=== PATIENT | male | born 1995 | race Caucasian/White ===

== ENCOUNTER 2019-06-30 14:02 | Emergency (ER) | payer SELFPAY ==
[2019-06-30 14:06] VITALS: BP 133/79; PULSE 89; RESP 12; TEMP 36.6; O2SAT 98
[2019-06-30] MEDS: Tetracaine 0.5% 4 ML BTL (14:16)
[2019-06-30] MEDS: Balanced Salt Solution 15 ML BTL (14:16)
[2019-06-30] MEDS: Fluorescein STRIPS 100/BOX 1 MG (14:16)
--- NOTE | 2019-06-30 15:05 | ED.GENADUL_ITS ---
Discharge Plan Disposition Patient Disposition: HOME Condition: Stable Discharge Details Chief Complaint: EyeProblem Clinical Impression: Abrasion of sclera of right eye, Eye foreign body Primary Care Provider: Luciano Dunn ED Provider: Shea Mclain Home Meds and New Rx's Prescriptions: No Action No Known Home Meds RF: 0 Discharge Instructions Instructions: Corneal Abrasion (ED), Eye Foreign Body (ED) Additional Instructions: Alternate Tylenol and Motrin as needed and directed for pain. Apply half-inch ribbon of erythromycin to the right eye 4 times daily for the next 5 days. Follow-up with your scheduled appointment with [facility] on . Return to the emergency department if you develop any worsening or new concerning symptoms. Discharge Data Discharge Physician: Shea Mclain Medical Decision Making 24-year-old male presents with right eye pain and foreign body sensation after using a plate grinder at work without eye protection. Does not wear contacts or glasses. No complaint of blurry vision or headache. Tetanus up-to-date. OD 20/20, OS 20/20, OU 20/20. There is a 4 x 2 mm scleral abrasion noted at 7:00 with Sanabria lamp. There is a 1 x 1 mm dark brown speck consistent with likely metal noted at 2:00 with slit- lamp and gross examination. The area was anesthetized with topical tetracaine and with multiple attempts, the foreign body was removed with the tip of an 18-gauge needle. There was no obvious remaining foreign body noted with repeat slit-lamp examination after removal. There was a rust stain remaining in place of the removed foreign body. Patient admitted to relief of pain. His eye was irrigated with saline solution and 1/2 inch ribbon of erythromycin ointment was placed. He has a follow-up appointment with [facility] on FridayJuly 05. He is advised to return here with any worsening or new concerning symptoms. HPI General Mode of arrival: ambulatory . Date/Time Provider Initiated Documentation: 06/30/19 14:11 . Limitations to Documentation: no limitations . Information obtained by: patient . HPI Narrative: Patient is a 24-year-old male who presents with injury to right eye since last night after using a plate grinder at work without eye protection. Patient states he thought something shot into his right eye. He states since then he has had irritation with blinking and is concerned that there is something in his eye. He states his tetanus is up-to- date. He denies any blurry vision, contacts, glasses, headache or dizziness. Related Data Home Medications Medication Instructions Recorded Confirmed Unknown [No Known Home Meds] 06/30/19 06/30/19 Allergies Allergy/AdvReac Type Severity Reaction Status Date / Time No Known Allergies Allergy Unverified 06/30/19 14:10 General Stated Complaint: EyeProblem TAMIKO: 4 Review of Systems All systems reviewed & are unremarkable except as noted in HPI and below Constitutional Constitutional: Reports as per HPI, Denies chills and Denies fever(s) Eyes Eyes: Denies blurry vision, Reports irritation, Reports eye pain and Reports other (foreign body sensation ) ENT Ears, Nose, Mouth, and Throat: Denies dizziness, Denies sore throat and Denies throat swelling Cardiovascular Cardiovascular: Denies chest pain and Denies dyspnea Respiratory Respiratory: Denies cough and Denies dyspnea Gastrointestinal Gastrointestinal: Denies abdominal pain, Denies diarrhea and Denies vomiting Genitourinary Genitourinary: Denies hematuria and Denies dysuria Musculoskeletal Musculoskeletal: Denies back pain and Denies numbness Integumentary/Breasts Skin/Breast: Denies lesions and Denies rash Neurologic Neurologic: Denies dizziness, Denies focal weakness and Denies numbness Allergic/Immunologic Allergic/Immunologic: Denies throat swelling [facility] Medical History No significant past medical history (Acute) Surgical History History of hernia repair (Chronic) Social History Smoking/Tobacco Use Status: Never Alcohol Intake: current Alcohol Intake frequency: holidays/special occasions only Drug use: Never Substance use type: does not use Do you feel safe at home: Yes Do you feel safe in your relationship?: Yes Exam Const General: cooperative, healthy appearing and no acute distress [facility] Head: normal to inspection Mouth: oral mucosae normal Eyes General: appearance normal, both eyes and all related structures Periorbital: periorbital findings normal Eyelids: eyelids normal Conjunctivae: conjunctival abnormality right conjunctival injection Pupils: PERRL EOM: EOM intact bilaterally Direct ophthalmoscopy: photophobia not present Other: There is a 4 x 2 mm scleral abrasion noted at 7:00 with fluorescein staining and Sanabria lamp. No other foreign bodies or injury noted with eyelid eversion. Eyes/upper lids images: 1. 1 x 1 mm dark brown speck likely consistent with metal noted at 2:00 in the iris noted with slit lamp examination and with gross examination of the eye. Neck Neck: normal visual inspection Resp Effort & Inspection: normal respiratory effort and able to speak in complete sentences Cardio Rate: regular rate Skin General skin exam: no rashes or lesions noted Neuro General: alert, awake and oriented x3 Motor: muscle tone normal throughout Extrem General: normal to inspection and full ROM Psych Appearance: grossly normal Affect: normal affect Course Vital Signs Vital signs: Vital Signs Temperature 97.9 F 06/30/19 14:06 Pulse 89 06/30/19 14:06 Respiratory Rate 12 06/30/19 14:06 Blood Pressure 133/79 06/30/19 14:06 Pulse Oximetry 98 06/30/19 14:06 Temperature 97.9 F 06/30/19 14:06 Temperature Source Temporal Artery Scan 06/30/19 14:06 Pulse 89 06/30/19 14:06 Respiratory Rate 12 06/30/19 14:06 Respiratory Effort Non-Labored 06/30/19 14:08 Blood Pressure 133/79 06/30/19 14:06 Blood Pressure Position Sitting 06/30/19 14:06 Pulse Oximetry 98 06/30/19 14:06 Oxygen Delivery Method Room Air 06/30/19 14:06 Oxygen Flow Rate 0 06/30/19 14:06 Pain Level 6 06/30/19 14:06
== END 2019-06-30 15:25 | disposition home or self-care (01) ==
LOC: ER 15:30
PROVIDERS: Emergency Provider Physician Assistant; PCP Internal Medicine
DX: T15.01XA Foreign body in cornea, right eye, initial encounter (principal); W31.1XXA Contact with metalworking machines, initial encounter
CPT/HCPCS: 65222

== ENCOUNTER 2019-09-18 04:51 | Inpatient (IN) | payer MEDICAID, SELFPAY ==
[2019-09-18] VITALS (27 sets, daily range): BP systolic 132–167; BP diastolic 63–105; PULSE 79–128; RESP 11–33; TEMP 36.6–38.3; O2SAT 94–98
--- NOTE | 2019-09-18 | DI.CT_ITS ---
EXAM: CT ABDOMEN PELVIS W CLINICAL HISTORY: Sepsis. N/v - IV contrast only TECHNIQUE: Imaging Protocol: Axial computed tomography images with coronal and sagittal reformatted images were created and reviewed CONTRAST MATERIAL: Intravenous: Omnipaque 350 Contrast volume:100 mL Oral: No COMPARISON: No exams were available for comparison FINDINGS: ABDOMEN: Lung Bases: Normal where visualized. Liver: Normal density. No measurable mass. Portal, Superior Mesenteric, and Splenic Veins: Unremarkable. Gallbladder and Biliary Tract: No radiodense calculus or dilation. Pancreas: Normal density, no abnormal calcifications or inflammatory process. Spleen: Normal. Adrenals: No masses seen. Kidneys: Normal size, contour and axis. No radiodense stones or obstructive uropathy. No masses seen. Abdominal Aorta: Abdominal portion non-dilated. Bowel: No obstruction or bowel wall thickening. Appendix is unremarkable. Peritoneal Cavity: No ascites, collection or mesenteric inflammatory response. Lymph Nodes: Within normal limits. Bones: Unremarkable. Soft Tissues: Unremarkable. PELVIS: Bladder: Symmetric distention, no gross wall thickening. Reproductive Organs: Unremarkable as visualized. Lymph Nodes: Within normal limits. Bones: L5 spondylolysis without evidence of spondylolisthesis. IMPRESSION: No acute abdominal or pelvic process. Incidental Findings Critical Findings DATA REPOSITORY: All CT scans at this facility are submitted to the National Radiology Data Registry (NRDR) Dose Index Registry (DIR) with the [employer] (ACR). RADIATION OPTIMIZATION: All CT scans at this facility use at least one of these dose optimization te chniques: automated exposure control; mA and/or kV adjustment per patient size (includes targeted exa ms where dose is matched to clinical indication); or iterative reconstruction.
--- NOTE | 2019-09-18 04:57 | ED.GENADUL_ITS ---
Discharge Plan Disposition Patient Disposition: [facility] INPATIENT Condition: Stable Discharge Details Chief Complaint: Abd Prob Clinical Impression: Opiate withdrawal, Hypokalemia Primary Care Provider: Luciano Dunn ED Provider: Jeremy Lara Home Meds and New Rx's Prescriptions: No Action clonidine HCl 0.1 mg Tablet 0.1 mg PO BID PRNRF: 0 loperamide 2 mg Capsule 2 mg PO TID PRNRF: 0 hydroxyzine HCl 25 mg Tablet 25 mg PO TID PRNRF: 0 ondansetron 4 mg Tablet,Disintegrating 8 mg PO Q8H PRNRF: 0 acetaminophen 325 mg Capsule 325 mg PO TID PRNRF: 0 buprenorphine-naloxone [Suboxone] 8-2 mg Film 1 film SUBLINGUAL DAILY RF: 0 Medical Decision Making 24 yo male who comes in from the care home for n/v for a day. He was using fentanyl multiple times a day for over a year and was incarcerated and started to have nausea and vomit starting yesterday and also having diarrhea and abdominal cramping. Ya any sharp pain. He was given 8mg zofran and also buprenorphine at the care home but was still having vomit so came here. He has a soft nontender abdomen, does have sweating on exam. Suspect opiate withdrawal, will given clonidine and also compazine and evaluate for electrolyte abnormalities and monitor. pt's wbc is over 30 which I suspect is stress response from his vomit and withdrawal, no fevers or infectious symptoms. K is 2.8 and mag is 1.5 and still not tolerating PO so will admit for opiate withdrawal and hypokalemia. Soft nontender abdomen still. Differential Diagnosis Differential Diagnosis: opiate withdrawal, gastritis Lab Data Lab results reviewed: Yes I reviewed the patient's lab results. HPI General Mode of arrival: wheelchair . Date/Time Provider Initiated Documentation: 09/18/19 04:56 . Limitations to Documentation: no limitations . Information obtained by: patient . History of Present Illness 24 year old M presents to the emergency department with the chief complaint of nausea and vomit, described as moderate and severe, Patient started experiencing this day(s) (1) and it has been constant. No relieving factors improve symptom(s), No exacerbating factors reported . Related Data Home Medications Medication Instructions Recorded Confirmed acetaminophen 325 mg PO TID PRN 09/18/19 09/18/19 buprenorphine-naloxone [Suboxone] 1 film SUBLINGUAL DAILY 09/18/19 09/18/19 clonidine HCl 0.1 mg PO BID PRN 09/18/19 09/18/19 hydroxyzine HCl 25 mg PO TID PRN 09/18/19 09/18/19 loperamide 2 mg PO TID PRN 09/18/19 09/18/19 ondansetron 8 mg PO Q8H PRN 09/18/19 09/18/19 Allergies Allergy/AdvReac Type Severity Reaction Status Date / Time No Known Allergies Allergy Unverified 06/30/19 14:10 General Stated Complaint: Abd Prob TAMIKO: 3 Review of Systems All systems reviewed & are unremarkable except as noted in HPI and below Constitutional Constitutional: Denies fever(s) Cardiovascular Cardiovascular: Denies chest pain and Denies dyspnea Respiratory Respiratory: Denies cough and Denies dyspnea Gastrointestinal Gastrointestinal: Reports nausea and Reports vomiting PFSH Medical History No significant past medical history (Acute) Surgical History History of hernia repair (Chronic) Social History Smoking/Tobacco Use Status: Never Alcohol Intake: current Alcohol Intake frequency: holidays/special occasions only Drug use: Never Substance use type: opiates Do you feel safe at home: Yes Do you feel safe in your relationship?: Yes Exam Const General: no acute distress Orientation: alert HENMT Head: normal to inspection Ears: external ears normal General nose exam: external nose normal Mouth: moist mucous membranes Eyes General: appearance normal, both eyes and all related structures Neck Neck: normal visual inspection Resp Effort & Inspection: normal respiratory effort and able to speak in complete sentences Cardio Rate: regular rate GI Palpation: soft Skin General skin exam: no rashes or lesions noted Neuro General: alert and oriented x3 Extrem General: normal to inspection Psych Mental Status: mental status grossly normal Course Vital Signs Vital signs: Pain Level 10 09/18/19 04:54
[2019-09-18] MEDS: Prochlorperazine 10 MG/2 ML VIAL IVP (05:12)
[2019-09-18] MEDS: Normal Saline Flush 10 ML SYR IVP ×5 (05:13→19:43)
[2019-09-18] MEDS: Normal Saline 1,000 ML 1000 ML IV (05:13)
[2019-09-18] MEDS: Pantoprazole 40 MG VIAL IVP ×3 (05:13→19:38)
[2019-09-18 05:14] LABS: Abs Immature Grans 0.16 k/cumm (0.0-0.09); HCT 43.2 % (40.0-50.0); HGB 15.2 g/dL (13.5-17.5); Mean Corp. HGB Concentration 35.2 g/dL (32.0-36.0); Mean Corpuscular Hemoglobin 28.6 pg (27.0-33.0); Mean Corpuscular Volume 81.4 fL (80-95); Mean Platelet Volume 9.6 fL (8.0-11.0); Platelet Count 576 x1000/uL (130-400); RBC 5.31 m/cumm (4.50-6.00); RBC Distribution Width 12.5 % (11.8-14.1)
[2019-09-18 05:23] LABS: Lipase 97 U/L (73-393); Magnesium 1.5 mg/dL (1.8-2.4)
[2019-09-18 05:30] LABS: ETHANOL BLOOD < 3.0 mg/dL (<3)
[2019-09-18 05:35] LABS: Absolute Monocyte Count 2.45 k/cumm (0.11-0.7); Absolute Neutrophil Count 31.81 k/cumm (1.2-6.7); Diff Comment Manual Differential; RBC Morphology Normal
[2019-09-18 05:36] LABS: White Blood Cell Count 34.96 k/cumm (4.4-10.8)
[2019-09-18 05:53] LABS: Anion Gap 19.6 mmol/L (3-11); BUN 20 mg/dL (7-18); CO2 28.4 mmol/L (21.0-32.0); CREATININE 1.57 mg/dL (0.70-1.30); Chloride 96 mmol/L (98-107); Estimated GFR 53.67 (mL/min/1.73m2); Glucose 247 mg/dL (74-106); Sodium 144 mmol/L (136-145)
[2019-09-18] MEDS: cloNIDine 0.1 MG TAB PO ×2 (05:57→19:35)
[2019-09-18 05:59] LABS: Potassium 2.8 mmol/L (3.5-5.1)
--- NOTE | 2019-09-18 06:04 | NUR.NOTE ---
Arrives with corrections officers from custodial with c/o vomiting, fentanyl withdrawal. Pt was arrested yesterday, last used fentanyl yesterday. Per corrections staff vomiting coffee ground emesis. Med with zofran, clonidine, buprenorphine and hydroxyzine [employer]. Pt arrives actively vomiting brown liquid. writhing in bed, reports 10/10 pain. #18 LAC, labs drawn, NS infusing. SR on monitor.
[2019-09-18] MEDS: POTASSIUM CHLORIDE 10 MEQ/100 ML BAG 100 MEQ IVPB ×2 (06:13→08:34)
--- NOTE | 2019-09-18 06:29 | W.PM.HP.N ---
Date of service: 09/18/19 Time of Service: 06:29 Assessment and Plan Assessment and plan (1) Opiate withdrawal: Status: Acute Assessment and plan: Opiate withdrawal. The marked leukocytosis is notable, presumably stress reaction, presentation does not otherwise suggest infection. Also noted is modest elevation in glucose (253) with elevated anion gap. Differential would technically include DKA but the balance of the case is clearly opiate withdrawal. Will continue IVF, potassium replacement, anti-emetics and will recheck CBC and electrolytes. Will also recheck sugar and check urine for ketones. History of Present Illness History of Present Illness Chief Complaint: vomiting Narrative: 24 male with h/o opiate abuse, incarcerated 2 days [employer], began experiencing nausea, vomiting, treated at correction with Suboxone and Zofcran without effect, sent here for further management. In ER findings of note for diaphoresis and restlessness, c/w opiate withdrawal, and labs of note for leukocytosis of 34K, magnesium 1.5 and hypokalemia. Given Mg SO4 1 gm, KCL 10 meq and started on Clonidine and Compazine. At this time patient states his nausea is much better. Denies abdominal pain. Review of Systems All systems reviewed & are unremarkable except as noted in HPI and below PFSH Medical History No significant past medical history (Acute) Surgical History History of hernia repair (Chronic) Social History Smoking/Tobacco Use Status: Never Alcohol Intake: current Alcohol Intake frequency: holidays/special occasions only Drug use: Never Substance use type: opiates Do you feel safe at home: Yes Do you feel safe in your relationship?: Yes Meds Home Medications and Allergies Home Medications Medication Instructions Recorded Confirmed Type acetaminophen 325 mg PO TID PRN 09/18/19 09/18/19 History buprenorphine-naloxone [Suboxone] 1 film SUBLINGUAL DAILY 09/18/19 09/18/19 History clonidine HCl 0.1 mg PO BID PRN 09/18/19 09/18/19 History hydroxyzine HCl 25 mg PO TID PRN 09/18/19 09/18/19 History loperamide 2 mg PO TID PRN 09/18/19 09/18/19 History ondansetron 8 mg PO Q8H PRN 09/18/19 09/18/19 History Allergies Allergy/AdvReac Type Severity Reaction Status Date / Time No Known Allergies Allergy Unverified 06/30/19 14:10 Exam Narrative Exam Narrative: 132/66, 88, 20, 37/2. HEENT Atraumatic, pupils 6-7 mm; neck supple; lungs clear; heart RRR; abdomen soft and NT; extremities w/o edema; neuro Ox3, restless, moves all 4s Results Labs Result diagrams: 09/18/19 05:00 09/18/19 05:00 Labs: Laboratory Results - last 24 hr 09/18/19 09/18/19 09/18/19 05:00 05:00 05:00 WBC 34.96 H* RBC 5.31 Hgb 15.2 Hct 43.2 MCV 81.4 MCH 28.6 MCHC 35.2 RDW 12.5 Plt Count 576 H MPV 9.6 Immature Gran % 0.0 Neutrophils % 91.0 Lymphocytes % 2.0 Monocytes % 7.0 Eosinophils % 0.0 Basophils % 0.0 Absolute Neutrophils 31.81 H Absolute Lymphocytes 0.70 L Absolute Monocytes 2.45 H Absolute Eosinophils 0.00 Absolute Basophils 0.00 Differential Comment Manual differential RBC Morphology Normal Sodium Potassium Chloride Carbon Dioxide Anion Gap BUN Creatinine Estimated GFR/1.73 m2 Glucose Calcium Magnesium 1.5 L Lipase 97 Ethyl Alcohol < 3.0 09/18/19 05:00 WBC RBC Hgb Hct MCV MCH MCHC RDW Plt Count MPV Immature Gran % Neutrophils % Lymphocytes % Monocytes % Eosinophils % Basophils % Absolute Neutrophils Absolute Lymphocytes Absolute Monocytes Absolute Eosinophils Absolute Basophils Differential Comment RBC Morphology Sodium 144 Potassium 2.8 L* Chloride 96 L Carbon Dioxide 28.4 Anion Gap 19.6 H BUN 20 H Creatinine 1.57 H Estimated GFR/1.73 m2 53.67 Glucose 247 H Calcium 10.0 Magnesium Lipase Ethyl Alcohol Last Vital Signs Temp 37.2 C 09/18/19 06:18 Pulse 88 09/18/19 06:18 Resp 20 09/18/19 06:18 BP 132/66 09/18/19 06:18 Pulse Ox 96 09/18/19 06:18
[2019-09-18] MEDS: MAGNESIUM SULFATE 1 GM/100 ML BAG IVPB (07:44)
[2019-09-18] MEDS: Acetaminophen 325 MG TAB 650 MG PO (08:34)
[2019-09-18] MEDS: POTASSIUM CHLORIDE/0.9% NACL 1,000 ML 125 MEQ IV ×2 (08:44→17:58)
[2019-09-18 09:15] LABS: Lactate 3.4 mmol/L (0.6-1.4)
[2019-09-18 09:16] LABS: Absolute Lymphocyte Count 0.93 k/cumm (1.2-3.4); Basophils % 0.1; HCT 38.7 % (40.0-50.0); HGB 13.4 g/dL (13.5-17.5); Immature Grans % 0.3 %; Lymphocytes % 3.1; Mean Corp. HGB Concentration 34.6 g/dL (32.0-36.0); Mean Corpuscular Hemoglobin 28.7 pg (27.0-33.0); Mean Corpuscular Volume 82.9 fL (80-95); Mean Platelet Volume 9.7 fL (8.0-11.0); Monocytes % 8.3; Neutrophils % 88.2; Platelet Count 440 x1000/uL (130-400); RBC 4.67 m/cumm (4.50-6.00); RBC Distribution Width 12.3 % (11.8-14.1)
[2019-09-18 09:20] LABS: Absolute Basophil Count 0.03 k/cumm (0.0-0.2); Absolute Monocyte Count 2.48 k/cumm (0.11-0.7); Absolute Neutrophil Count 26.38 k/cumm (1.2-6.7)
[2019-09-18 09:29] LABS: ALT 20 U/L (16-63); AST 17 U/L (15-37); Albumin 4.7 g/dL (3.4-5.0); Alkaline Phosphatase 52 U/L (46-116); Anion Gap 9.9 mmol/L (3-11); BUN 19 mg/dL (7-18); Bilirubin, Direct 0.19 mg/dL (0.00-0.20); Bilirubin, Total 0.8 mg/dL (0.2-1.0); C-Reactive Protein 0.49 mg/dL (0.0-0.3); CO2 31.1 mmol/L (21.0-32.0); Calcium 8.9 mg/dL (8.5-10.1); Chloride 103 mmol/L (98-107); Glucose 193 mg/dL (74-106); Sodium 144 mmol/L (136-145); Total Protein 7.7 g/dL (6.4-8.2)
[2019-09-18 09:30] LABS: INR 1.3 (0.9-1.1); Prothrombin Time 12.7 sec (9.3-11.0)
[2019-09-18] MEDS: Omnipaque 350 MG/ML 100 ML BTL IJ (09:30)
[2019-09-18] MEDS: Normal Saline - Diluent 50 ML VIAL IV (09:31)
[2019-09-18 09:32] LABS: Potassium 2.8 mmol/L (3.5-5.1)
--- NOTE | 2019-09-18 09:50 | DI.RAD_ITS ---
EXAM: XR CHEST 2V PA LATERAL INDICATION: sepsis. COMPARISON: No exams were available for comparison TECHNIQUE: 2D digital imaging was performed. FINDINGS: The heart size and pulmonary vasculature are within normal limits. No focal consolidating infiltrate s are present. No pleural effusions or pneumothoraces are identified. Bones appear intact. IMPRESSION: No acute pulmonary process.
[2019-09-18 09:52] LABS: White Blood Cell Count 29.91 k/cumm (4.4-10.8)
[2019-09-18 09:53] LABS: Diff Comment Agrees w/ Instrument; Procalcitonin 0.6 ng/mL; RBC Morphology Normal
[2019-09-18] MEDS: PIPERACILLIN/TAZO 4.5 GM in Normal Saline 100 ML IVPB ×2 (10:07→16:17)
--- NOTE | 2019-09-18 10:09 | DI.VRAD_ITS ---
PROCEDURE INFORMATION: Exam: CT Abdomen And Pelvis With Contrast Exam date and time: 09/18/2019 9:36 AM Age: 24 years old Clinical indication: Other: Sepsis. N/v TECHNIQUE: Imaging protocol: Computed tomography of the abdomen and pelvis with intravenous contrast. Radiation optimization: All CT scans at this facility use at least one of these dose optimization techniques: automated exposure control; mA and/or kV adjustment per patient size (includes targeted exams where dose is matched to clinical indication); or iterative reconstruction. Contrast material: OMNIPAQUE 350; Contrast volume: 100 ml; Contrast route: IV; COMPARISON: No relevant prior studies available. FINDINGS: Lungs: The visualized portions of the lungs are normal. Liver: The liver is normal. Gallbladder and bile ducts: There is no intrahepatic bile duct dilation. The gallbladder is normal. The common bile duct is not dilated. Pancreas: Unremarkable. No ductal dilation. Spleen: The spleen is normal. Adrenals: The adrenal glands are normal. Kidneys and ureters: The kidneys are normal. The ureters are normal. Stomach and bowel: The stomach is normal. There is no evidence of intestinal obstruction. There is no wall thickening to suggest enteritis or colitis. Appendix: A normal appendix is identified. Intraperitoneal space: Unremarkable. No free air. No significant fluid collection. Vasculature: Unremarkable. No abdominal aortic aneurysm. Lymph nodes: Unremarkable. No enlarged lymph nodes. Bladder: The bladder is normal. Reproductive: Unremarkable as visualized. Bones/joints: Dextroconvex thoracolumbar scoliotic curvature. Bilateral L5 pars interarticularis defects. Soft tissues: Unremarkable. IMPRESSION: No acute abdominal pelvic CT findings. Dictated and Authenticated by: Giovani Contreras MD. Ordering:CRISSY Corral MD
--- NOTE | 2019-09-18 10:11 | DI.VRAD_ITS ---
PROCEDURE INFORMATION: Exam: XR Chest, 2 Views Exam date and time: 09/18/2019 9:42 AM Age: 24 years old Clinical indication: Other: Sepsis TECHNIQUE: Imaging protocol: XR of the chest Views: 2 views. COMPARISON: No relevant prior studies available. FINDINGS: Lungs: Mild asymmetrical right peribronchial opacities. No focal airspace consolidation. Pleural space: Unremarkable. No pleural effusion. No pneumothorax. Heart/Mediastinum: Unremarkable. No cardiomegaly. Bones/joints: Unremarkable. IMPRESSION: Mild asymmetrical right peribronchial opacities could represent infectious bronchiolitis in the proper clinical setting. No focal airspace consolidation. Dictated and Authenticated by: Giovani Contreras MD. Ordering:CRISSY Corral MD
[2019-09-18] MEDS: MAGNESIUM SULFATE 4 GM/100 ML BAG IVPB (11:06)
--- NOTE | 2019-09-18 11:56 | PGE_ITS ---
Date of Service Date of service: 09/18/19 Time of Service: 11:56 Subjective Subjective Interval history since last seen: The patient spiked a fever. Reports a sore throat. Denies cough, chest pain, shortness of breath. Denies nausea, but had just vomited after drinking astrid ralf. Denies using IV drugs. Per patient, when he vomited, it looked black. Skilled Nursing staff confirms it - state it looked like chewing tobacco. Flu neg. Blood cultures, urine and sputum culture ordered. Strep ordered. Started on empiric vanco/zosyn. IVF. NPO, increase PPI to BID. Check hemoccult. Check H/H this afternoon. Trend lactates - elevated. Procalcitonin elevated. Looking to see if ther eis a designated facility for federal prisoners in [place]. Objective Objective Clinical Data: Abnormal lab results 09/18/19 09/18/19 09/18/19 Range/Units 05:00 05:00 05:00 WBC 34.96 H* (4.4-10.8) k/cumm Hgb (13.5-17.5) g/dL Hct (40.0-50.0) % Plt Count 576 H (130-400) x1000/uL Absolute Neutrophils 31.81 H (1.2-6.7) k/cumm Absolute Lymphocytes 0.70 L (1.2-3.4) k/cumm Absolute Monocytes 2.45 H (0.11-0.7) k/cumm PT (9.3-11.0) sec INR (0.9-1.1) Potassium 2.8 L* (3.5-5.1) mmol/L Chloride 96 L (98-107) mmol/L Anion Gap 19.6 H (3-11) mmol/L BUN 20 H (7-18) mg/dL Creatinine 1.57 H (0.70-1.30) mg/dL Glucose 247 H (74-106) mg/dL Lactate (0.6-1.4) mmol/L Magnesium 1.5 L (1.8-2.4) mg/dL C-Reactive Protein (0.0-0.3) mg/dL 09/18/19 09/18/19 09/18/19 Range/Units 08:55 08:55 08:55 WBC 29.91 H* (4.4-10.8) k/cumm Hgb 13.4 L (13.5-17.5) g/dL Hct 38.7 L (40.0-50.0) % Plt Count 440 H (130-400) x1000/uL Absolute Neutrophils 26.38 H (1.2-6.7) k/cumm Absolute Lymphocytes 0.93 L (1.2-3.4) k/cumm Absolute Monocytes 2.48 H (0.11-0.7) k/cumm PT (9.3-11.0) sec INR (0.9-1.1) Potassium 2.8 L* (3.5-5.1) mmol/L Chloride (98-107) mmol/L Anion Gap (3-11) mmol/L BUN 19 H (7-18) mg/dL Creatinine 1.40 H (0.70-1.30) mg/dL Glucose 193 H (74-106) mg/dL Lactate 3.4 H* (0.6-1.4) mmol/L Magnesium (1.8-2.4) mg/dL C-Reactive Protein 0.49 H (0.0-0.3) mg/dL 09/18/19 Range/Units 08:55 WBC (4.4-10.8) k/cumm Hgb (13.5-17.5) g/dL Hct (40.0-50.0) % Plt Count (130-400) x1000/uL Absolute Neutrophils (1.2-6.7) k/cumm Absolute Lymphocytes (1.2-3.4) k/cumm Absolute Monocytes (0.11-0.7) k/cumm PT 12.7 H (9.3-11.0) sec INR 1.3 H (0.9-1.1) Potassium (3.5-5.1) mmol/L Chloride (98-107) mmol/L Anion Gap (3-11) mmol/L BUN (7-18) mg/dL Creatinine (0.70-1.30) mg/dL Glucose (74-106) mg/dL Lactate (0.6-1.4) mmol/L Magnesium (1.8-2.4) mg/dL C-Reactive Protein (0.0-0.3) mg/dL Vital Signs Temperature 37.9 C H 09/18/19 09:59 Temperature Source Temporal Artery Scan 09/18/19 09:59 Pulse 107 H 09/18/19 08:09 Pulse Rhythm Regular 09/18/19 07:48 Pulse 84 09/18/19 06:50 Respiratory Rate 18 09/18/19 07:48 Respiratory Effort Short of Breath 09/18/19 07:48 Respiratory Depth Shallow 09/18/19 07:48 Respiratory Pattern Normal 09/18/19 07:48 Blood Pressure 147/63 H 09/18/19 07:48 Blood Pressure Mean 104 09/18/19 06:31 Blood Pressure Position Supine 09/18/19 04:54 Pulse Oximetry 95 09/18/19 07:48 Oxygen Delivery Method Room Air 09/18/19 07:48 Oxygen Flow Rate 0 09/18/19 07:48 Pain Level 2 09/18/19 07:48 Intake & Output 09/17/19 09/17/19 09/18/19 11:59 23:59 11:59 Intake Total 1010 / 1010 Balance 1010 / 1010 Weight 77.3 kg Intake: IV 1010 / 1010 Laboratory Results WBC Cancelled 09/18/19 14:00 RBC Cancelled 09/18/19 14:00 Hgb Cancelled 09/18/19 14:00 Hct Cancelled 09/18/19 14:00 MCV Cancelled 09/18/19 14:00 MCH Cancelled 09/18/19 14:00 MCHC Cancelled 09/18/19 14:00 RDW Cancelled 09/18/19 14:00 Plt Count Cancelled 09/18/19 14:00 MPV Cancelled 09/18/19 14:00 Immature Gran % 0.3 % 09/18/19 08:55 Neutrophils % 88.2 09/18/19 08:55 Lymphocytes % 3.1 09/18/19 08:55 Monocytes % 8.3 09/18/19 08:55 Eosinophils % 0.0 09/18/19 08:55 Basophils % 0.1 09/18/19 08:55 Absolute Neutrophils 26.38 k/cumm (1.2-6.7) H 09/18/19 08:55 Absolute Lymphocytes 0.93 k/cumm (1.2-3.4) L 09/18/19 08:55 Absolute Monocytes 2.48 k/cumm (0.11-0.7) H 09/18/19 08:55 Absolute Eosinophils 0.00 k/cumm (0.0-0.7) 09/18/19 08:55 Absolute Basophils 0.03 k/cumm (0.0-0.2) 09/18/19 08:55 Differential Comment Agrees w/ instrument 09/18/19 08:55 RBC Morphology Normal 09/18/19 08:55 PT 12.7 sec (9.3-11.0) H 09/18/19 08:55 INR 1.3 (0.9-1.1) H 09/18/19 08:55 Sodium Cancelled 09/18/19 14:00 Potassium Cancelled 09/18/19 14:00 Chloride Cancelled 09/18/19 14:00 Carbon Dioxide Cancelled 09/18/19 14:00 Anion Gap Cancelled 09/18/19 14:00 BUN Cancelled 09/18/19 14:00 Creatinine Cancelled 09/18/19 14:00 Estimated GFR/1.73 m2 Cancelled 09/18/19 14:00 Glucose Cancelled 09/18/19 14:00 Lactate 3.4 mmol/L (0.6-1.4) H* 09/18/19 08:55 Calcium Cancelled 09/18/19 14:00 Magnesium 1.5 mg/dL (1.8-2.4) L 09/18/19 05:00 Total Bilirubin 0.8 mg/dL (0.2-1.0) 09/18/19 08:55 Conjugated Bilirubin 0.19 mg/dL (0.00-0.20) 09/18/19 08:55 AST 17 U/L (15-37) 09/18/19 08:55 ALT 20 U/L (16-63) 09/18/19 08:55 Alkaline Phosphatase 52 U/L (46-116) 09/18/19 08:55 C-Reactive Protein 0.49 mg/dL (0.0-0.3) H 09/18/19 08:55 Total Protein 7.7 g/dL (6.4-8.2) 09/18/19 08:55 Albumin 4.7 g/dL (3.4-5.0) 09/18/19 08:55 Lipase 97 U/L (73-393) 09/18/19 05:00 Procalcitonin 0.6 ng/mL 09/18/19 08:55 Ethyl Alcohol < 3.0 mg/dL (<3) 09/18/19 05:00
[2019-09-18 12:13] LABS: Lactate 1.1 mmol/L (0.6-1.4)
[2019-09-18] MEDS: POTASSIUM CHLORIDE 20 MEQ/100 ML BAG 50 MEQ IVPB (12:59)
[2019-09-18 13:37] LABS: Bilirubin Small (Negative); Blood Negative (Negative); Clarity Clear (Clear); Glucose Negative (Negative); Ketones 80 mg/dL (Negative); Leukocyte Esterase Negative (Negative); Nitrite Negative (Negative); pH 8.5 (5-8)
[2019-09-18 13:57] LABS: *AMPHETAMINES SCREEN URINE Negative (Negative); *BARBITURATES SCREEN URINE Negative (Negative); *BENZODIAZEPINES SCREEN URINE Negative (Negative); Cannabinoids THC POSITIVE (Negative); Cocaine Screen,Urine Negative (Negative); METHADONE URINE SCREEN Negative (Negative); OPIATES URINE SCREEN POSITIVE (Negative)
[2019-09-18 13:58] LABS: Tricyclic Antidepressants Negative (Negative)
[2019-09-18 14:04] LABS: Epithelial Cells Few HPF (Negative); RBC 0-2 HPF (0-2); WBC 0-2 HPF (0-5)
[2019-09-18 14:06] LABS: Bacteria Few HPF (Negative); C & S Indicated? C&S Done As Ordered; Casts Negative LPF (Negative); Crystals Negative HPF (Negative); Mucus Negative (Negative); Other Cells Moderate Spermatozoa (Negative)
--- NOTE | 2019-09-18 14:09 | PHARADMIT ---
Admission Pharmacy Clinical Review OPIATE WITHDRAWAL, SEPSIS Code Status Full Code Current Weight 77.3 kg Renally Cleared and Narrow Therapeutic Index Meds CRC;L ~87ML/MIN QTc Value / Action Taken NA BP Control, Fever 147/68 FEBRILE TMAX 38.3 Electrolytes reviewed K 2.8, MAG 1.5, BOTH BEING REPLACED AND FOLLOW UP LAB DRAWS ORDERED DVT Prophylaxis NO Opiate Usage / Scheduled Bowel Regimen Ordered NO/NO Plt/SCr for Heparin / Enoxaparin 440/1.4 INR for Warfarin 1.3 NOT ON WARFARIN H/H stable, WBC/Bands 13.4/38.7 WBC 29.91 Antibiotic appropriateness VANCOMYCIN, PIP/TAZO STARTED Cultures and Sensitivities UC AND BC PENDING, FLU - Surgical ABX d/c within 24 hr NA DM control / Insulin Dosing NA Heart Failure (Check EF%) (JORGE L's, B-Block, Diuretics) NA IV to PO Switch IV MEDS Home Meds Reviewed Home Meds Not Ordered buprenorphine-naloxone [Suboxone] 1 film SUBLINGUAL DAILY hydroxyzine HCl 25 mg PO TID PRN loperamide 2 mg PO TID PRN Comments
[2019-09-18 15:11] LABS: HGB 13.2 g/dL (13.5-17.5); Lactate 1.9 mmol/L (0.6-1.4)
[2019-09-18 15:19] LABS: BUN 16 mg/dL (7-18); CREATININE 1.18 mg/dL (0.70-1.30); Calcium 8.7 mg/dL (8.5-10.1); Chloride 105 mmol/L (98-107); Glucose 159 mg/dL (74-106); Potassium 4.3 mmol/L (3.5-5.1); Sodium 144 mmol/L (136-145)
[2019-09-19] VITALS (80 sets, daily range): BP systolic 115–158; BP diastolic 71–123; PULSE 56–96; RESP 17–40; TEMP 36.5–37.5; O2SAT 86–100
[2019-09-19] MEDS: PIPERACILLIN/TAZO 4.5 GM in Normal Saline 100 ML IVPB ×3 (00:13→16:08)
[2019-09-19] MEDS: Acetaminophen 325 MG TAB 650 MG PO (00:23)
--- NOTE | 2019-09-19 01:52 | DI.RAD_ITS ---
EXAM: XR PORTABLE CHEST AP INDICATION: sudden onset tachypnea and hypoxemia. COMPARISON: XR CHEST 2V PA LATERAL from 09/18/2019 TECHNIQUE: 2D digital imaging was performed. FINDINGS: The heart size and pulmonary vasculature are within normal limits. There has developed a left basila r infiltrate. The lungs are otherwise clear. No effusion or pneumothorax is identified. IMPRESSION: New left lower lobe infiltrate.
[2019-09-19] MEDS: POTASSIUM CHLORIDE/0.9% NACL 1,000 ML 125 MEQ IV ×2 (02:00→15:35)
--- NOTE | 2019-09-19 02:36 | DI.VRAD_ITS ---
PROCEDURE INFORMATION: Exam: XR Chest, 1 View Exam date and time: 09/19/2019 2:18 AM Age: 24 years old Clinical indication: Tachypnea and other: Hypoxemia; Patient HX: Sudden onset tachypnea and hypoxemia TECHNIQUE: Imaging protocol: XR of the chest Views: 1 view. COMPARISON: CR XR CHEST 2V PA LATERAL 09/18/2019 9:41 AM FINDINGS: Lungs: Left lower lobe infiltrate. Pleural space: Unremarkable. No pleural effusion. No pneumothorax. Heart/Mediastinum: Unremarkable. No cardiomegaly. Bones/joints: Unremarkable. IMPRESSION: Left lower lobe infiltrate. This is segmental in size. This was not present 09/18/2019 at 9:00 a.m. Dictated and Authenticated by: Reed Fernández MD. Ordering:MURRAY Wolf MD
[2019-09-19 02:39] LABS: Abs Immature Grans 0.07 k/cumm (0.0-0.09); HGB 12.7 g/dL (13.5-17.5); Mean Corp. HGB Concentration 34.3 g/dL (32.0-36.0); Mean Corpuscular Hemoglobin 28.9 pg (27.0-33.0); Mean Corpuscular Volume 84.3 fL (80-95); Mean Platelet Volume 9.3 fL (8.0-11.0); Platelet Count 327 x1000/uL (130-400); RBC 4.39 m/cumm (4.50-6.00); RBC Distribution Width 12.9 % (11.8-14.1); White Blood Cell Count 22.98 k/cumm (4.4-10.8)
[2019-09-19 02:45] LABS: Anion Gap 7.5 mmol/L (3-11); BUN 11 mg/dL (7-18); CO2 29.5 mmol/L (21.0-32.0); CREATININE 1.05 mg/dL (0.70-1.30); Chloride 108 mmol/L (98-107); Glucose 128 mg/dL (74-106); Potassium 3.2 mmol/L (3.5-5.1); Sodium 145 mmol/L (136-145)
[2019-09-19 02:57] LABS: Absolute Lymphocyte Count 0.23 k/cumm (1.2-3.4); Absolute Neutrophil Count 21.14 k/cumm (1.2-6.7)
[2019-09-19 02:58] LABS: Absolute Monocyte Count 1.38 k/cumm (0.11-0.7); Anisocytosis 1+; Diff Comment Manual Differential
[2019-09-19 02:59] LABS: Microcytosis 1+; NT-proBNP 191 pg/mL (<300)
[2019-09-19 03:09] LABS: D-Dimer 483 ng/mlFEU (<500)
[2019-09-19] MEDS: Potassium Chloride 20 MEQ TABCR PO (04:33)
[2019-09-19 06:59] LABS: Anion Gap 10.5 mmol/L (3-11); BUN 11 mg/dL (7-18); C-Reactive Protein 6.23 mg/dL (0.0-0.3); CO2 25.5 mmol/L (21.0-32.0); CREATININE 0.84 mg/dL (0.70-1.30); Chloride 109 mmol/L (98-107); Glucose 130 mg/dL (74-106); Potassium 3.4 mmol/L (3.5-5.1); Sodium 145 mmol/L (136-145)
[2019-09-19] MEDS: Pantoprazole 40 MG VIAL IVP ×2 (07:55→20:14)
[2019-09-19] MEDS: cloNIDine 0.1 MG TAB PO ×2 (08:44→20:55)
[2019-09-19] MEDS: Normal Saline Flush 10 ML SYR IVP ×5 (08:44→20:15)
[2019-09-19 11:08] LABS: BE 1.2 mmol/L (-3-3); FIO2L 3 L; HCO3 25 mmol/L (22-28); Site Right Radial; pCO2 34 mmHg (34-47); pH 7.47 (7.35-7.45); pO2 75 mmHg (83-108); sO2 96 % (94-98); tCO2 22 mmol/L (22-29)
--- NOTE | 2019-09-19 11:09 | PGE_ITS ---
Date of Service Date of service: 09/19/19 Time of Service: 11:09 Assessment and Plan Assessment and plan (1) Sepsis: Status: Acute Assessment and plan: Likely due to LLL PNA, seen on CXR last night. Blood cultures reported as negative at 24 hours. Urine C&S with NGTD. Sputum C&S not collected. Continue to trend CRP/procalcitonin. Initiated on empiric vancomycin/zosyn yesterday. Add doxycycline for atypical coverage. Monitor fever curve. Await HIV result. Though defervesced, clinically the patient took a dramatic turn for the worse in the last 2 hours - transferring to ICU for closer monitoring. (2) CAP (community acquired pneumonia): Status: Acute Assessment and plan: As above. Obtain CT chest to ensure no ARDS. Chemical pneumonitis also a possibility. Doubt septic embolism as blood cultures are negative - will continue to monitor. Obtain urine strep/legionella and sputum for mycoplasma. Vanco/zosyn day 2, doxycycline day 1. Transfer to ICU for closer monitoring. Rx prn nebs. (3) Hypoxia: Status: Acute Assessment and plan: Patient appears to be slightly hyperventilating by ABG, but there is mild hypoxemia. Obtaining CT of the chest. Doubt PE - ddimer negative, and clinically the story matches an infectious process more. Concern for chemical pneumonitis as well. Patient denies vaping. (4) Toxic metabolic encephalopathy: Status: Acute Assessment and plan: CT head ordered. Likely product of underlying septic process. Monitor mental status. Transfer to ICU for closer monitoring. (5) Opiate withdrawal: Status: Acute Assessment and plan: Treat with prn clonidine/hydroxyzine. I do not feel comfortable giving the patient suboxone with his current mental status. (6) Hypokalemia: Status: Acute Assessment and plan: Replete and recheck in am. (7) DVT prophylaxis: Status: Acute Assessment and plan: Await CT head - if negative, would start SC lovenox (8) Discharge planning issues: Status: Acute Assessment and plan: Full code. Transfer to ICU. Total Critical Care Time 60 minutes. Subjective Subjective Interval history since last seen: I'm withdrawing. Bad. Everything is bothering me. Per nursing, the patient was wide awake this morning, but became weak while washing up and quite lethargic after returning to bed. In the last 20-30 minutes, he had been progressively more lethargic, though still arousable. Overnight, the patient became hypoxic to the 80's on room air and is now requiring 3L of O2 to saturate 96%. He reports feeling short of breath without oxygen. Denies chest pain while wearing oxygen, but thinks he will get it if it is taken off. Denies dizziness, headache, sensitivity to light. States his feet hurt (a lot). He does not remember seeing me yesterday. He cannot tell me today's date. He has difficulty turning to one side without assistance. Reported to nursing just a little bit earlier that he felt he might pass out. He was not orthostatic. He is about to go to radiology for a CT of his head and chest, following which he is expected to go to the ICU. Exam Narrative Exam Narrative: General: ill appearing male, diaphoretic, lethargic, arousable, but takes a long time to respond to questions, appears weak (?effort vs real), A&Ox2, looks significantly worse than yesterday HEENT: EOMI, dry MM; has dry residual red food coloring on his lips and cheek (admits to eating something red earlier) Heart: RRR, mildly tachycardic (90's) Lungs: Diminished shallow breaths, tachypenic Abdomen: soft, nontender, nondistended Extremities: no e/c/c BLE's, secured with cuff to bed to his right ankle Objective Objective Clinical Data: Abnormal lab results 09/18/19 09/18/19 09/18/19 Range/Units 13:15 13:15 15:05 WBC (4.4-10.8) k/cumm RBC (4.50-6.00) m/cumm Hgb (13.5-17.5) g/dL Hct (40.0-50.0) % Absolute Neutrophils (1.2-6.7) k/cumm Absolute Lymphocytes (1.2-3.4) k/cumm Absolute Monocytes (0.11-0.7) k/cumm ABG pH (7.35-7.45) ABG pO2 (83-108) mmHg Potassium (3.5-5.1) mmol/L Chloride (98-107) mmol/L Glucose (74-106) mg/dL Lactate 1.9 H (0.6-1.4) mmol/L Calcium (8.5-10.1) mg/dL C-Reactive Protein (0.0-0.3) mg/dL Urine pH 8.5 H (5-8) Urine Protein 100 H (Negative) mg/dL Urine Ketones 80 H (Negative) mg/dL Urine Bilirubin Small H (Negative) Urine Urobilinogen 2.0 H (Up TO 0.2) EU/dL Urine Opiates Screen Positive A (Negative) Ur THC Screen Positive A (Negative) 09/18/19 09/18/19 09/19/19 Range/Units 15:05 15:05 02:25 WBC 22.98 H (4.4-10.8) k/cumm RBC 4.39 L (4.50-6.00) m/cumm Hgb 13.2 L 12.7 L (13.5-17.5) g/dL Hct 38.0 L 37.0 L (40.0-50.0) % Absolute Neutrophils 21.14 H (1.2-6.7) k/cumm Absolute Lymphocytes 0.23 L (1.2-3.4) k/cumm Absolute Monocytes 1.38 H (0.11-0.7) k/cumm ABG pH (7.35-7.45) ABG pO2 (83-108) mmHg Potassium (3.5-5.1) mmol/L Chloride (98-107) mmol/L Glucose 159 H (74-106) mg/dL Lactate (0.6-1.4) mmol/L Calcium (8.5-10.1) mg/dL C-Reactive Protein (0.0-0.3) mg/dL Urine pH (5-8) Urine Protein (Negative) mg/dL Urine Ketones (Negative) mg/dL Urine Bilirubin (Negative) Urine Urobilinogen (Up TO 0.2) EU/dL Urine Opiates Screen (Negative) Ur THC Screen (Negative) 09/19/19 09/19/19 09/19/19 Range/Units 02:25 06:26 11:05 WBC (4.4-10.8) k/cumm RBC (4.50-6.00) m/cumm Hgb (13.5-17.5) g/dL Hct (40.0-50.0) % Absolute Neutrophils (1.2-6.7) k/cumm Absolute Lymphocytes (1.2-3.4) k/cumm Absolute Monocytes (0.11-0.7) k/cumm ABG pH 7.47 H (7.35-7.45) ABG pO2 75 L (83-108) mmHg Potassium 3.2 L D 3.4 L (3.5-5.1) mmol/L Chloride 108 H 109 H (98-107) mmol/L Glucose 128 H 130 H (74-106) mg/dL Lactate (0.6-1.4) mmol/L Calcium 8.0 L 8.0 L (8.5-10.1) mg/dL C-Reactive Protein 6.23 H (0.0-0.3) mg/dL Urine pH (5-8) Urine Protein (Negative) mg/dL Urine Ketones (Negative) mg/dL Urine Bilirubin (Negative) Urine Urobilinogen (Up TO 0.2) EU/dL Urine Opiates Screen (Negative) Ur THC Screen (Negative) Vital Signs Temperature 37.1 C 09/19/19 10:20 Temperature Source Tympanic 09/19/19 10:20 Pulse 90 09/19/19 10:35 Pulse Rhythm Regular 09/19/19 07:50 Pulse 84 09/18/19 06:50 Respiratory Rate 24 09/19/19 10:20 Respiratory Effort Short of Breath 09/19/19 07:50 Respiratory Depth Normal 09/19/19 07:50 Respiratory Pattern Normal 09/19/19 07:50 Blood Pressure 137/80 09/19/19 10:35 Blood Pressure Mean 104 09/18/19 06:31 Blood Pressure Position Supine 09/18/19 04:54 Pulse Oximetry 97 09/19/19 10:20 Oxygen Delivery Method Room Air 09/19/19 10:20 Oxygen Flow Rate 0 09/19/19 10:20 Pain Level 0 09/19/19 10:20 Intake & Output 09/18/19 09/18/19 09/19/19 11:59 23:59 11:59 Intake Total 1310 / 3158.500 1848.500 / 3158.500 1460 / 1460 Output Total 400 / 400 400 / 400 Balance 1310 / 2758.500 1448.500 / 2758.500 1060 / 1060 Weight 77.3 kg Intake: IV 1310 / 3158.500 1848.500 / 3158.500 1100 / 1100 Oral 360 / 360 Output: Urine 400 / 400 Stool 400 / 400 Other: Urine Color Straw Yellow Urine Appearance Clear Clear Urine Odor None Comment Urine not measured Urine not seen, voided independently in toilet. Stool Occult Blood Negative Stool Size Large Small Stool Characteristics Formed Liquid Foamy Brown Emesis Description Retching Retching Bile Voiding Methods Toilet Toilet Laboratory Results WBC 22.98 k/cumm (4.4-10.8) H 09/19/19 02:25 RBC 4.39 m/cumm (4.50-6.00) L 09/19/19 02:25 Hgb 12.7 g/dL (13.5-17.5) L 09/19/19 02:25 Hct 37.0 % (40.0-50.0) L 09/19/19 02:25 MCV 84.3 fL (80-95) 09/19/19 02:25 MCH 28.9 pg (27.0-33.0) 09/19/19 02:25 MCHC 34.3 g/dL (32.0-36.0) 09/19/19 02:25 RDW 12.9 % (11.8-14.1) 09/19/19 02:25 Plt Count 327 x1000/uL (130-400) D 09/19/19 02:25 MPV 9.3 fL (8.0-11.0) 09/19/19 02:25 Immature Gran % See Differential 09/19/19 02:25 Neutrophils % 91.0 09/19/19 02:25 Band Neutrophils % 1.0 % 09/19/19 02:25 Lymphocytes % 1.0 09/19/19 02:25 Monocytes % 6.0 09/19/19 02:25 Eosinophils % 0.0 09/19/19 02:25 Basophils % 0.0 09/19/19 02:25 Absolute Neutrophils 21.14 k/cumm (1.2-6.7) H 09/19/19 02:25 Absolute Lymphocytes 0.23 k/cumm (1.2-3.4) L 09/19/19 02:25 Absolute Monocytes 1.38 k/cumm (0.11-0.7) H 09/19/19 02:25 Absolute Eosinophils 0.00 k/cumm (0.0-0.7) 09/19/19 02:25 Absolute Basophils 0.00 k/cumm (0.0-0.2) 09/19/19 02:25 Differential Comment Manual differential 09/19/19 02:25 RBC Morphology See below 09/19/19 02:25 Anisocytosis 1+ 09/19/19 02:25 Microcytosis 1+ 09/19/19 02:25 PT 12.7 sec (9.3-11.0) H 09/18/19 08:55 INR 1.3 (0.9-1.1) H 09/18/19 08:55 D-Dimer 483 ng/mlFEU (<500) 09/19/19 02:25 ABG Sample Site Right radial 09/19/19 11:05 ABG pH 7.47 (7.35-7.45) H 09/19/19 11:05 ABG pCO2 34 mmHg (34-47) 09/19/19 11:05 ABG pO2 75 mmHg (83-108) L 09/19/19 11:05 ABG HCO3 25 mmol/L (22-28) 09/19/19 11:05 ABG Total CO2 22 mmol/L (22-29) 09/19/19 11:05 ABG O2 Saturation 96 % (94-98) 09/19/19 11:05 ABG Base Excess 1.2 mmol/L (-3-3) 09/19/19 11:05 Oxygen Liter Flow 3 L 09/19/19 11:05 Sodium 145 mmol/L (136-145) 09/19/19 06:26 Potassium 3.4 mmol/L (3.5-5.1) L 09/19/19 06:26 Chloride 109 mmol/L (98-107) H 09/19/19 06:26 Carbon Dioxide 25.5 mmol/L (21.0-32.0) 09/19/19 06:26 Anion Gap 10.5 mmol/L (3-11) 09/19/19 06:26 BUN 11 mg/dL (7-18) 09/19/19 06:26 Creatinine 0.84 mg/dL (0.70-1.30) 09/19/19 06:26 Estimated GFR/1.73 m2 >= 60.00 (mL/min/1.73m2) 09/19/19 06:26 Glucose 130 mg/dL (74-106) H 09/19/19 06:26 Lactate 1.9 mmol/L (0.6-1.4) H 09/18/19 15:05 Calcium 8.0 mg/dL (8.5-10.1) L 09/19/19 06:26 Magnesium 2.0 mg/dL (1.8-2.4) 09/19/19 06:26 Total Bilirubin 0.8 mg/dL (0.2-1.0) 09/18/19 08:55 Conjugated Bilirubin 0.19 mg/dL (0.00-0.20) 09/18/19 08:55 AST 17 U/L (15-37) 09/18/19 08:55 ALT 20 U/L (16-63) 09/18/19 08:55 Alkaline Phosphatase 52 U/L (46-116) 09/18/19 08:55 C-Reactive Protein 6.23 mg/dL (0.0-0.3) H 09/19/19 06:26 NT-Pro-B Natriuret Pep 191 pg/mL (<300) 09/19/19 02:25 Total Protein 7.7 g/dL (6.4-8.2) 09/18/19 08:55 Albumin 4.7 g/dL (3.4-5.0) 09/18/19 08:55 Lipase 97 U/L (73-393) 09/18/19 05:00 Procalcitonin 0.6 ng/mL 09/18/19 08:55 Urine Color Yellow (Yellow) 09/18/19 13:15 Urine Clarity Clear (Clear) 09/18/19 13:15 Urine pH 8.5 (5-8) H 09/18/19 13:15 Ur Specific [place] 1.010 (1.005-1.025) 09/18/19 13:15 Urine Protein 100 mg/dL (Negative) H 09/18/19 13:15 Urine Ketones 80 mg/dL (Negative) H 09/18/19 13:15 Urine Blood Negative (Negative) 09/18/19 13:15 Urine Nitrite Negative (Negative) 09/18/19 13:15 Urine Bilirubin Small (Negative) H 09/18/19 13:15 Urine Urobilinogen 2.0 EU/dL (Up TO 0.2) H 09/18/19 13:15 Ur Leukocyte Esterase Negative (Negative) 09/18/19 13:15 Urine RBC 0-2 HPF (0-2) 09/18/19 13:15 Urine WBC 0-2 HPF (0-5) 09/18/19 13:15 Ur Epithelial Cells Few HPF (Negative) 09/18/19 13:15 Urine Crystals Negative HPF (Negative) 09/18/19 13:15 Urine Bacteria Few HPF (Negative) 09/18/19 13:15 Urine Casts Negative LPF (Negative) 09/18/19 13:15 Urine Mucus Negative (Negative) 09/18/19 13:15 Urine Other Moderate spermatozoa (Negative) 09/18/19 13:15 Ur Culture Indicated? C&s done as ordered 09/18/19 13:15 Urine Glucose Negative mg/dL (Negative) 09/18/19 13:15 Urine Opiates Screen Positive (Negative) A 09/18/19 13:15 Urine Methadone Screen Negative (Negative) 09/18/19 13:15 Ur Barbiturates Screen Negative (Negative) 09/18/19 13:15 Ur Tricyclics Screen Negative (Negative) 09/18/19 13:15 Ur Amphetamines Screen Negative (Negative) 09/18/19 13:15 U Benzodiazepines Scrn Negative (Negative) 09/18/19 13:15 Urine Cocaine Screen Negative (Negative) 09/18/19 13:15 Ur THC Screen Positive (Negative) A 09/18/19 13:15 Ethyl Alcohol < 3.0 mg/dL (<3) 09/18/19 05:00 CXR 09/19/2019 2:18 am: Left lower lobe infiltrate. This is segmental in size. This was not present 09/18/2019 at 9:00 a.m.
--- NOTE | 2019-09-19 11:25 | DI.CT_ITS ---
EXAM: CT CHEST WO CLINICAL HISTORY: new oxygen requirement. ?pneumonitis/ARDS. TECHNIQUE: Imaging protocol: Axial computed tomography images were obtained and coronal and sagittal reformatted images were created and reviewed. The exam was performed without contrast. COMPARISON: No exams were available for comparison FINDINGS: Tracheobronchial tree: Patent where visualized. Mediastinum and Jayda: No dominant adenopathy or fluid collection. Examination of the mediastinum is l imited due to the lack of IV contrast. Pulmonary parenchyma: There are ground-glass opacities scattered throughout the lungs. There is rela tive sparing of the right upper lobe. There is a focal consolidation in the left lower lobe medially . No architectural distortion. Pleura: No effusion or pneumothorax. Heart: The heart is not dilated. No coronary artery calcifications are seen. No pericardial effusion. Aorta: Thoracic aorta non-dilated. Upper abdomen: Unremarkable. Lymph nodes: Within normal limits. Bones:Normal. There is patient motion artifact present. IMPRESSION: Multifocal opacities in the lungs with focal consolidation in the left lower lobe. The findings are most consistent with multifocal pneumonia. DATA REPOSITORY: All CT scans at this facility are submitted to the National Radiology Data Registry (NRDR) Dose Index Registry (DIR) with the [employer] ([employer]). RADIATION OPTIMIZATION: All CT scans at this facility use at least one of these dose optimization te chniques: automated exposure control; mA and/or kV adjustment per patient size (includes targeted exa ms where dose is matched to clinical indication); or iterative reconstruction.
--- NOTE | 2019-09-19 11:35 | DI.CT_ITS ---
EXAM: CT HEAD WO CLINICAL HISTORY: encephalopathy. TECHNIQUE: Imaging Protocol: Axial computed tomography images with coronal and sagittal reformatted images were created and reviewed. The exam was performed without contrast. COMPARISON: No exams were available for comparison FINDINGS: Ventricles and Extra axial spaces: Normal in size and morphology for the patient's age. Hemorrhage: None. Cerebral parenchyma: Normal. Midline shift: None. Brainstem/Cerebellum: Normal. Calvarium: Normal. Visualized Paranasal sinuses/Mastoids: Clear. IMPRESSION: Normal CT of the head. DATA REPOSITORY: All CT scans at this facility are submitted to the National Radiology Data Registry (NRDR) Dose Index Registry (DIR) with the [employer] ([employer]). RADIATION OPTIMIZATION: All CT scans at this facility use at least one of these dose optimization te chniques: automated exposure control; mA and/or kV adjustment per patient size (includes targeted exa ms where dose is matched to clinical indication); or iterative reconstruction.
--- NOTE | 2019-09-19 12:10 | DI.VRAD_ITS ---
PROCEDURE INFORMATION: Exam: CT Head Without Contrast Exam date and time: 09/19/2019 11:05 AM Age: 24 years old Clinical indication: Other: Encephalopathy TECHNIQUE: Imaging protocol: Computed tomography of the head without contrast. Radiation optimization: All CT scans at this facility use at least one of these dose optimization techniques: automated exposure control; mA and/or kV adjustment per patient size (includes targeted exams where dose is matched to clinical indication); or iterative reconstruction. COMPARISON: No relevant prior studies available. FINDINGS: Brain: Normal. No hemorrhage. Unremarkable white matter. No mass effect. Ventricles: Normal. No ventriculomegaly. Bones/joints: Unremarkable. No acute fracture. Sinuses: Visualized sinuses are unremarkable. No fluid levels. Mastoid air cells: Visualized mastoid air cells are well aerated. Soft tissues: Unremarkable. IMPRESSION: No acute intracranial abnormality. Dictated and Authenticated by: Luis De Jesus MD. Ordering:CRISSY Corral MD
--- NOTE | 2019-09-19 12:12 | DI.VRAD_ITS ---
PROCEDURE INFORMATION: Exam: CT Chest Without Contrast Exam date and time: 09/19/2019 11:26 AM Age: 24 years old Clinical indication: Other: New oxygen requirment, ? pneumonitis/ ards TECHNIQUE: Imaging protocol: Computed tomography of the chest without contrast. Radiation optimization: All CT scans at this facility use at least one of these dose optimization techniques: automated exposure control; mA and/or kV adjustment per patient size (includes targeted exams where dose is matched to clinical indication); or iterative reconstruction. COMPARISON: CR XR PORTABLE CHEST AP 09/19/2019 2:10 AM FINDINGS: Lungs: Consolidation in the medial aspect of the left lower lobe. Patchy opacities bilaterally throughout the lung adams consistent with multifocal pneumonia. Pleural space: Unremarkable. No pneumothorax. No pleural effusion. Heart: Unremarkable. No cardiomegaly. No pericardial effusion. Aorta: Unremarkable. No aortic aneurysm. Lymph nodes: Unremarkable. No enlarged lymph nodes. Bones/joints: Unremarkable. No acute fracture. Soft tissues: Unremarkable. IMPRESSION: Consolidation in the medial aspect of the left lower lobe. Patchy opacities bilaterally throughout the lung adams consistent with multifocal pneumonia. Dictated and Authenticated by: Luis De Jesus MD. Ordering:CRISSY Corral MD
--- NOTE | 2019-09-19 12:45 | NUR.NOTE ---
at 10:20 am pt started complaining of feeling dizzy, wanting to pass out, ortho VS was negative. still complained of feeling SOB, spo2 on 3L 96-97 rr :22-24 HR 80 BP138/80. PT got ABG drawn, CT chest . He was then transferred to the ICU for further management
[2019-09-19] MEDS: DOXYCYCLINE 100 MG in Normal Saline 100 ML IVPB (13:27)
[2019-09-19] MEDS: Hydrocortisone SOD SUC. 100 MG VIAL IVP (13:48)
[2019-09-19 14:22] LABS: Vancomycin, Trough 9.4 ug/mL (10.0-20.0)
[2019-09-19] MEDS: Ondansetron 4 MG/2 ML VIAL IVP (15:35)
--- NOTE | 2019-09-19 17:07 | INITIAL_ITS ---
- If Service Date Differs Date of service: 09/19/19 Time of Service: 17:07 Care Management Initial Assess REASON FOR HOSPITALIZATION:: Abdominal pain PAST MEDICAL HISTORY/PAST SURGICAL HISTORY:: Medical History . No significant past medical history (Acute). Surgical History . History of hernia repair (Chronic) PREVIOUS FUNCTIONAL STATUS/SOCIAL/FAMILY SUPPORTS:: Gaetano is currently in the custody of the [facility] Correctional facility. 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 He is independent at baseline. CURRENT FUNCTIONAL STATUS:: Gaetano was sitting up in bed when CM met with him. He reported that he was not feeling well at this time. He expressed concern for his animals at home and his business. CM contacted his mother, Samanta, with permission from Gaetano, who stated that she has his dog and his sister has his cat. Samanta also stated that she is watching over his business while he is incarcerated. Samanta expressed concern at the lack of communication between her and the correctional facility. CM verified that Samanta and his sister, Caitlin, are currently on the HIP[employer]. CM will continue to follow. ADVANCE DIRECTIVES:: None on file. Has patient been provided with information about the portal?: No Did the patient sign up for the portal?: No CODE STATUS:: Full Code INSURANCE COVERAGE / FINANCIAL ISSUES:: [facility] CURRENT HOME/COMMUNITY SERVICES/EQUIPMENT:: Gaetano currently does not use any equipment or services in the community. PRIMARY CARE PHYSICIAN:: Luciano Dunn POTENTIAL DISCHARGE NEEDS:: Evaluations for further needs, community supports, follow up appointments PATIENT/FAMILY EDUCATION NEEDS:: Review discharge instructions with Gaetano and staff of [facility] Corrections, discussion of self care needs including ask me three ANTICIPATED BARRIERS TO DISCHARGE:: None identified at this time. TRANSPORTATION:: Gaetano will be transported back to the Correctional Facility by guards when ready. PLAN:: Anticipate Gaetano will return to the [facility] Correctional facility when medically cleared. He will follow up with his PCP. He will be transported by guards via private vehicle. CM will continue to follow and support Gaetano, his family and staff with discharge planning considerations.
[2019-09-19] MEDS: Hydrocortisone SOD SUC. 100 MG VIAL 50 MG IVP (18:56)
[2019-09-20] VITALS (38 sets, daily range): BP systolic 126–151; BP diastolic 67–90; PULSE 57–103; RESP 1–36; TEMP 36.5–37.2; O2SAT 92–100
[2019-09-20] MEDS: Hydrocortisone SOD SUC. 100 MG VIAL 50 MG IVP ×4 (00:40→18:59)
[2019-09-20] MEDS: DOXYCYCLINE 100 MG in Normal Saline 100 ML IVPB ×2 (00:41→12:28)
[2019-09-20] MEDS: hydrOXYzine HCL 25 MG TAB PO ×3 (00:53→12:27)
[2019-09-20] MEDS: Acetaminophen 325 MG TAB 650 MG PO (00:53)
[2019-09-20] MEDS: PIPERACILLIN/TAZO 4.5 GM in Normal Saline 100 ML IVPB ×3 (01:36→16:02)
[2019-09-20] MEDS: POTASSIUM CHLORIDE/0.9% NACL 1,000 ML 125 MEQ IV (03:51)
[2019-09-20] MEDS: Normal Saline Flush 10 ML SYR IVP ×8 (05:36→23:59)
[2019-09-20 06:34] LABS: Abs Immature Grans 0.02 k/cumm (0.0-0.09); Basophils % 0.1; HCT 34.1 % (40.0-50.0); HGB 11.5 g/dL (13.5-17.5); Immature Grans % 0.1 %; Lymphocytes % 10.6; Mean Corp. HGB Concentration 33.7 g/dL (32.0-36.0); Mean Corpuscular Hemoglobin 28.9 pg (27.0-33.0); Mean Corpuscular Volume 85.7 fL (80-95); Mean Platelet Volume 9.8 fL (8.0-11.0); Monocytes % 8.7; Neutrophils % 80.5; Platelet Count 294 x1000/uL (130-400); RBC 3.98 m/cumm (4.50-6.00); RBC Distribution Width 12.8 % (11.8-14.1); White Blood Cell Count 15.14 k/cumm (4.4-10.8)
[2019-09-20] MEDS: cloNIDine 0.1 MG TAB PO (06:34)
[2019-09-20 06:35] LABS: Absolute Basophil Count 0.02 k/cumm (0.0-0.2); Absolute Monocyte Count 1.32 k/cumm (0.11-0.7); Absolute Neutrophil Count 12.19 k/cumm (1.2-6.7)
[2019-09-20 06:47] LABS: Anion Gap 11.9 mmol/L (3-11); BUN 16 mg/dL (7-18); C-Reactive Protein 5.77 mg/dL (0.0-0.3); CO2 24.1 mmol/L (21.0-32.0); CREATININE 0.85 mg/dL (0.70-1.30); Calcium 7.8 mg/dL (8.5-10.1); Chloride 112 mmol/L (98-107); Glucose 126 mg/dL (74-106); Potassium 3.4 mmol/L (3.5-5.1); Sodium 148 mmol/L (136-145)
--- NOTE | 2019-09-20 08:24 | PGE_ITS ---
Date of Service Date of service: 09/20/19 Time of Service: 14:38 Assessment and Plan Assessment and plan (1) Sepsis: Status: Acute Assessment and plan: Due to multifocal pneumonia which was clinically present on admission. Blood cultures negative at 48 hours. Urine C&S with NGTD. Sputum C&S with normal demian. Procalcitonin and CRP are improving. Continue vancomycin/zosyn (day 3) and doxycycline (day 2). Tomorrow would d/c vancomycin. Continue to trend CRP/procalcitonin. Ok to transfer out of ICU. Improving. (2) CAP (community acquired pneumonia): Status: Acute Assessment and plan: CT chest with multifocal pneumonia. Clinically better on vanco/zosyn/doxycycline, stress dose steroids, nebs. D/c vanco tomorrow. Continue to trend CRP/procalcitonin. Add mucinex. Ok to transfer out of ICU. (3) Hypoxia: Status: Resolved Assessment and plan: As above - due to multifocal pneumonia. Resolved. (4) Toxic metabolic encephalopathy: Status: Resolved Assessment and plan: CT head negative. Likely due to pneumonia which was worse yesterday. We will resume suboxone at outpatient dose today monitoring mental status to ensure the patient does not get oversedated. If can tolerate it, ok to transfer out of ICU. (5) Opiate withdrawal: Status: Acute Assessment and plan: Outpatient suboxone dose verified - will trial here, carefully monitoring mental status. I explained to the patient that we do not titrate this medication here and if he is too somnolent after today's dose, I will not be able to continue prescribing it. Treat with prn clonidine/hydroxyzine/compazine/loperamide. (6) Hypokalemia: Status: Acute Assessment and plan: Replete and recheck in am. (7) DVT prophylaxis: Status: Acute Assessment and plan: Start SC lovenox (8) Discharge planning issues: Status: Acute Assessment and plan: Full code. Transfer out of ICU if mental status tolerates suboxone. Subjective Subjective Interval history since last seen: Off O2. 97-98% on RA. Continues to have cough productive of green sputum. Denies dizziness, chest pain, shortness of breath. Reports nausea, has had quite a bit of vomiting and loose stools. Requests his suboxone. Agrees that, if it makes him too somnolent, he will not be getting it in the hospital anymore. Dose was verified with prison - he is on 8 mg and 2 mg of suboxone. Not lethargic this am. Alert and oriented. Exam Narrative Exam Narrative: General: ill appearing male, though looks better today than yesterday, A&Ox3, sitting up in bed, very awake. HEENT: EOMI, dry MM; has dry residual red food coloring on his lips= Heart: RRR, no m/r/g Lungs: Not tachypneic; shallow cough. Wheezing resolves with cough. Abdomen: soft, nontender, nondistended Extremities: no e/c/c BLE's, secured with cuff to bed to his right ankle Objective Objective Clinical Data: Abnormal lab results 09/19/19 09/19/19 09/20/19 Range/Units 11:05 14:00 06:25 WBC (4.4-10.8) k/cumm RBC (4.50-6.00) m/cumm Hgb (13.5-17.5) g/dL Hct (40.0-50.0) % Absolute Neutrophils (1.2-6.7) k/cumm Absolute Monocytes (0.11-0.7) k/cumm ABG pH 7.47 H (7.35-7.45) ABG pO2 75 L (83-108) mmHg Sodium 148 H (136-145) mmol/L Potassium 3.4 L (3.5-5.1) mmol/L Chloride 112 H (98-107) mmol/L Anion Gap 11.9 H (3-11) mmol/L Glucose 126 H (74-106) mg/dL Calcium 7.8 L (8.5-10.1) mg/dL C-Reactive Protein 5.77 H (0.0-0.3) mg/dL Vancomycin Trough 9.4 L (10.0-20.0) ug/mL 09/20/19 Range/Units 06:25 WBC 15.14 H D (4.4-10.8) k/cumm RBC 3.98 L (4.50-6.00) m/cumm Hgb 11.5 L (13.5-17.5) g/dL Hct 34.1 L (40.0-50.0) % Absolute Neutrophils 12.19 H (1.2-6.7) k/cumm Absolute Monocytes 1.32 H (0.11-0.7) k/cumm ABG pH (7.35-7.45) ABG pO2 (83-108) mmHg Sodium (136-145) mmol/L Potassium (3.5-5.1) mmol/L Chloride (98-107) mmol/L Anion Gap (3-11) mmol/L Glucose (74-106) mg/dL Calcium (8.5-10.1) mg/dL C-Reactive Protein (0.0-0.3) mg/dL Vancomycin Trough (10.0-20.0) ug/mL Vital Signs Temperature 37.2 C 09/20/19 07:46 Temperature Source Temporal Artery Scan 09/20/19 04:30 Pulse 82 09/20/19 04:01 Pulse Rhythm Regular 09/19/19 07:50 Pulse 82 09/20/19 04:01 Respiratory Rate 25 H 09/20/19 07:46 Respiratory Effort 09/20/19 07:46 Respiratory Depth Shallow 09/20/19 07:46 Respiratory Pattern Normal 09/20/19 07:46 Blood Pressure 145/89 H 09/20/19 04:01 Blood Pressure Mean 99 09/20/19 04:01 Blood Pressure Position Supine 09/19/19 11:45 Pulse Oximetry 98 09/20/19 07:46 Oxygen Delivery Method Room Air 09/20/19 07:46 Oxygen Flow Rate 0 09/20/19 07:46 Pain Level 5 09/20/19 07:46 Intake & Output 09/19/19 09/19/19 09/20/19 11:59 23:59 11:59 Intake Total 2710 / 4571.250 1861.250 / 4571.250 960 / 960 Output Total 400 / 1250 850 / 1250 550 / 550 Balance 2310 / 3321.250 1011.250 / 3321.250 410 / 410 Weight 77.3 kg 77.7 kg Intake: IV 2350 / 3431.250 1081.250 / 3431.250 460 / 460 Oral 360 / 1140 780 / 1140 500 / 500 Output: Urine 650 / 650 300 / 300 Stool 400 / 400 200 / 200 Emesis 200 / 200 50 / 50 Other: Urine Color Yellow Yellow Light Cecilia Urine Appearance Clear Clear Clear Urine Odor Normal Comment Urine not seen, voided independently in toilet. mixed with stool Mixed with thick diarrhea, amount approximated Stool Occult Blood Negative Stool Size Small Small Moderate Stool Characteristics Liquid Liquid Foamy Brown Brown Emesis Description Bile Gastric Occult Blood Negative Voiding Methods Toilet Bedside Commode Laboratory Results WBC 15.14 k/cumm (4.4-10.8) H D 09/20/19 06:25 RBC 3.98 m/cumm (4.50-6.00) L 09/20/19 06:25 Hgb 11.5 g/dL (13.5-17.5) L 09/20/19 06:25 Hct 34.1 % (40.0-50.0) L 09/20/19 06:25 MCV 85.7 fL (80-95) 09/20/19 06:25 MCH 28.9 pg (27.0-33.0) 09/20/19 06:25 MCHC 33.7 g/dL (32.0-36.0) 09/20/19 06:25 RDW 12.8 % (11.8-14.1) 09/20/19 06:25 Plt Count 294 x1000/uL (130-400) 09/20/19 06:25 MPV 9.8 fL (8.0-11.0) 09/20/19 06:25 Immature Gran % 0.1 % 09/20/19 06:25 Neutrophils % 80.5 09/20/19 06:25 Band Neutrophils % 1.0 % 09/19/19 02:25 Lymphocytes % 10.6 09/20/19 06:25 Monocytes % 8.7 09/20/19 06:25 Eosinophils % 0.0 09/20/19 06:25 Basophils % 0.1 09/20/19 06:25 Absolute Neutrophils 12.19 k/cumm (1.2-6.7) H 09/20/19 06:25 Absolute Lymphocytes 1.60 k/cumm (1.2-3.4) 09/20/19 06:25 Absolute Monocytes 1.32 k/cumm (0.11-0.7) H 09/20/19 06:25 Absolute Eosinophils 0.00 k/cumm (0.0-0.7) 09/20/19 06:25 Absolute Basophils 0.02 k/cumm (0.0-0.2) 09/20/19 06:25 Differential Comment Manual differential 09/19/19 02:25 RBC Morphology See below 09/19/19 02:25 Anisocytosis 1+ 09/19/19 02:25 Microcytosis 1+ 09/19/19 02:25 PT 12.7 sec (9.3-11.0) H 09/18/19 08:55 INR 1.3 (0.9-1.1) H 09/18/19 08:55 D-Dimer 483 ng/mlFEU (<500) 09/19/19 02:25 ABG Sample Site Right radial 09/19/19 11:05 ABG pH 7.47 (7.35-7.45) H 09/19/19 11:05 ABG pCO2 34 mmHg (34-47) 09/19/19 11:05 ABG pO2 75 mmHg (83-108) L 09/19/19 11:05 ABG HCO3 25 mmol/L (22-28) 09/19/19 11:05 ABG Total CO2 22 mmol/L (22-29) 09/19/19 11:05 ABG O2 Saturation 96 % (94-98) 09/19/19 11:05 ABG Base Excess 1.2 mmol/L (-3-3) 09/19/19 11:05 Oxygen Liter Flow 3 L 09/19/19 11:05 Sodium 148 mmol/L (136-145) H 09/20/19 06:25 Potassium 3.4 mmol/L (3.5-5.1) L 09/20/19 06:25 Chloride 112 mmol/L (98-107) H 09/20/19 06:25 Carbon Dioxide 24.1 mmol/L (21.0-32.0) 09/20/19 06:25 Anion Gap 11.9 mmol/L (3-11) H 09/20/19 06:25 BUN 16 mg/dL (7-18) 09/20/19 06:25 Creatinine 0.85 mg/dL (0.70-1.30) 09/20/19 06:25 Estimated GFR/1.73 m2 >= 60.00 (mL/min/1.73m2) 09/20/19 06:25 Glucose 126 mg/dL (74-106) H 09/20/19 06:25 Lactate 1.9 mmol/L (0.6-1.4) H 09/18/19 15:05 Calcium 7.8 mg/dL (8.5-10.1) L 09/20/19 06:25 Magnesium 2.0 mg/dL (1.8-2.4) 09/20/19 06:25 Total Bilirubin 0.8 mg/dL (0.2-1.0) 09/18/19 08:55 Conjugated Bilirubin 0.19 mg/dL (0.00-0.20) 09/18/19 08:55 AST 17 U/L (15-37) 09/18/19 08:55 ALT 20 U/L (16-63) 09/18/19 08:55 Alkaline Phosphatase 52 U/L (46-116) 09/18/19 08:55 C-Reactive Protein 5.77 mg/dL (0.0-0.3) H 09/20/19 06:25 NT-Pro-B Natriuret Pep 191 pg/mL (<300) 09/19/19 02:25 Total Protein 7.7 g/dL (6.4-8.2) 09/18/19 08:55 Albumin 4.7 g/dL (3.4-5.0) 09/18/19 08:55 Lipase 97 U/L (73-393) 09/18/19 05:00 Procalcitonin 0.6 ng/mL 09/18/19 08:55 Urine Color Yellow (Yellow) 09/18/19 13:15 Urine Clarity Clear (Clear) 09/18/19 13:15 Urine pH 8.5 (5-8) H 09/18/19 13:15 Ur Specific [place] 1.010 (1.005-1.025) 09/18/19 13:15 Urine Protein 100 mg/dL (Negative) H 09/18/19 13:15 Urine Ketones 80 mg/dL (Negative) H 09/18/19 13:15 Urine Blood Negative (Negative) 09/18/19 13:15 Urine Nitrite Negative (Negative) 09/18/19 13:15 Urine Bilirubin Small (Negative) H 09/18/19 13:15 Urine Urobilinogen 2.0 EU/dL (Up TO 0.2) H 09/18/19 13:15 Ur Leukocyte Esterase Negative (Negative) 09/18/19 13:15 Urine RBC 0-2 HPF (0-2) 09/18/19 13:15 Urine WBC 0-2 HPF (0-5) 09/18/19 13:15 Ur Epithelial Cells Few HPF (Negative) 09/18/19 13:15 Urine Crystals Negative HPF (Negative) 09/18/19 13:15 Urine Bacteria Few HPF (Negative) 09/18/19 13:15 Urine Casts Negative LPF (Negative) 09/18/19 13:15 Urine Mucus Negative (Negative) 09/18/19 13:15 Urine Other Moderate spermatozoa (Negative) 09/18/19 13:15 Ur Culture Indicated? C&s done as ordered 09/18/19 13:15 Urine Glucose Negative mg/dL (Negative) 09/18/19 13:15 Vancomycin Trough 9.4 ug/mL (10.0-20.0) L 09/19/19 14:00 Urine Opiates Screen Positive (Negative) A 09/18/19 13:15 Urine Methadone Screen Negative (Negative) 09/18/19 13:15 Ur Barbiturates Screen Negative (Negative) 09/18/19 13:15 Ur Tricyclics Screen Negative (Negative) 09/18/19 13:15 Ur Amphetamines Screen Negative (Negative) 09/18/19 13:15 U Benzodiazepines Scrn Negative (Negative) 09/18/19 13:15 Urine Cocaine Screen Negative (Negative) 09/18/19 13:15 Ur THC Screen Positive (Negative) A 09/18/19 13:15 Ethyl Alcohol < 3.0 mg/dL (<3) 09/18/19 05:00
[2019-09-20 09:14] LABS: Vancomycin, Trough 19.8 ug/mL (10.0-20.0)
[2019-09-20] MEDS: POTASSIUM CHLORIDE/D5-0.45NACL 1,000 ML 125 MEQ IV (09:24)
[2019-09-20] MEDS: Pantoprazole 40 MG VIAL IVP ×2 (09:25→21:44)
[2019-09-20 09:47] LABS: ALT 21 U/L (16-63); AST 16 U/L (15-37); Albumin 3.3 g/dL (3.4-5.0); Alkaline Phosphatase 41 U/L (46-116); Bilirubin, Direct 0.16 mg/dL (0.00-0.20); Bilirubin, Total 0.6 mg/dL (0.2-1.0); Total Protein 6.2 g/dL (6.4-8.2)
[2019-09-20 10:23] LABS: Procalcitonin 0.2 ng/mL
[2019-09-20] MEDS: Loperamide 2 MG CAP PO ×2 (10:37→15:55)
[2019-09-20] MEDS: Potassium Chloride 20 MEQ TABCR 40 MEQ PO (11:25)
[2019-09-20 11:47] LABS: HIV-1/2 Ag & Ab Screen Negative (Negative)
[2019-09-20] MEDS: Ondansetron 4 MG/2 ML VIAL IVP ×2 (11:55→12:27)
--- NOTE | 2019-09-20 12:55 | W.NUTCONSULT ---
Date of service: 09/20/19 Time of Service: 12:55 Nutritional Consult ASSESSMENT: 20 year old male with PNA, sepsis with opiate withdrawal. BMI wnl. Following regular meal plan with adequate intake. Not at nutritional risk at this time. MONITORING AND EVALUATION: wegiht, po intake, labs Time Spent in Nutritional Counseling and Treatment: 0 time spent face to face
[2019-09-20] MEDS: Albuterol/Ipratropium 3 ML UPD VIAL UPD ×2 (13:03→16:50)
[2019-09-20] MEDS: Buprenorphine/Naloxone 8 mg/2 mg FILM 1 EACH SL (15:56)
[2019-09-20] MEDS: Enoxaparin 40 MG/0.4 ML SYR SC (15:56)
--- NOTE | 2019-09-20 18:10 | CMPROGNOTE_ITS ---
- If Service Date Differs Date of service: 09/20/19 Time of Service: 18:10 Care Management Progress Note S/O: Gaetano was sitting up in bed when CM met with him. He remains in the custody of [place] [facility], with two guards present at all times. Gaetano reported that he was still not feeling well at all, and he is not able to eat at this time, because he cannot keep anything down. Per provider, this is likely due to opiate withdrawal. He will be treated for his nausea in order for him to eat. 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 CM stated that his mom and sister both wanted him to know that they love him very much, and he began to get tearful. CM will continue to follow. A: Gaetano is a 24 year old male admitted to [facility] on 09/18/19 for sepsis, bilateral pneumonia. P:Anticipate Gaetano will return to the [facility]al facility when medically cleared. He will follow up with his PCP. He will be transported by guards via private vehicle. CM will continue to follow and support Gaetano, his family and staff with discharge planning considerations.
[2019-09-20] MEDS: guaiFENesin 600 MG TABCR PO (21:44)
[2019-09-21] VITALS (7 sets, daily range): BP systolic 141–164; BP diastolic 91–102; PULSE 53–77; RESP 2–20; TEMP 36.5–37.8; O2SAT 96–100
--- NOTE | 2019-09-21 | DI.RAD_ITS ---
EXAM: XR PORTABLE CHEST AP INDICATION: follow up multifocal pneumonia. COMPARISON: XR PORTABLE CHEST AP from 09/19/2019 TECHNIQUE: 2D digital imaging was performed. FINDINGS: The heart size and pulmonary vasculature are within normal limits. The left basilar infiltrate has r esolved. No new infiltrates are seen. No pleural effusions or pneumothoraces are present. The bone s are unremarkable. IMPRESSION: Resolved left basilar infiltrate. No pulmonary infiltrates are seen. The degree of pneumonia was be st appreciated on the CT scan of the chest.
[2019-09-21] MEDS: Hydrocortisone SOD SUC. 100 MG VIAL 50 MG IVP ×2 (00:01→06:50)
[2019-09-21] MEDS: DOXYCYCLINE 100 MG in Normal Saline 100 ML IVPB ×2 (00:01→11:19)
[2019-09-21] MEDS: Normal Saline Flush 10 ML SYR IVP ×3 (00:50→21:28)
[2019-09-21] MEDS: Ondansetron 4 MG/2 ML VIAL IVP (00:52)
[2019-09-21] MEDS: PIPERACILLIN/TAZO 4.5 GM in Normal Saline 100 ML IVPB ×3 (01:00→16:21)
[2019-09-21 07:09] LABS: Abs Immature Grans 0.03 k/cumm (0.0-0.09); Absolute Basophil Count 0.01 k/cumm (0.0-0.2); Absolute Eosinophil Count 0.01 k/cumm (0.0-0.7); Absolute Lymphocyte Count 1.92 k/cumm (1.2-3.4); Absolute Monocyte Count 1.08 k/cumm (0.11-0.7); Absolute Neutrophil Count 9.82 k/cumm (1.2-6.7); Basophils % 0.1; Eosinophils % 0.1; HCT 33.4 % (40.0-50.0); Immature Grans % 0.2 %; Lymphocytes % 14.9; Mean Corp. HGB Concentration 32.9 g/dL (32.0-36.0); Mean Corpuscular Hemoglobin 28.2 pg (27.0-33.0); Mean Corpuscular Volume 85.6 fL (80-95); Mean Platelet Volume 10.5 fL (8.0-11.0); Monocytes % 8.4; Neutrophils % 76.3; Platelet Count 303 x1000/uL (130-400); RBC Distribution Width 13.2 % (11.8-14.1); White Blood Cell Count 12.87 k/cumm (4.4-10.8)
[2019-09-21 07:36] LABS: Anion Gap 11.4 mmol/L (3-11); BUN 10 mg/dL (7-18); C-Reactive Protein 2.37 mg/dL (0.0-0.3); CO2 24.6 mmol/L (21.0-32.0); CREATININE 0.78 mg/dL (0.70-1.30); Calcium 8.1 mg/dL (8.5-10.1); Chloride 110 mmol/L (98-107); Glucose 142 mg/dL (74-106); Magnesium 1.8 mg/dL (1.8-2.4); Potassium 3.3 mmol/L (3.5-5.1); Sodium 146 mmol/L (136-145)
[2019-09-21] MEDS: Pantoprazole 40 MG VIAL IVP (09:02)
[2019-09-21] MEDS: Buprenorphine/Naloxone 8 mg/2 mg FILM 1 EACH SL (09:02)
[2019-09-21] MEDS: guaiFENesin 600 MG TABCR PO ×2 (09:02→20:17)
[2019-09-21] MEDS: POTASSIUM CHLORIDE/D5-0.45NACL 1,000 ML 125 MEQ IV ×2 (09:03)
[2019-09-21] MEDS: predniSONE 20 MG TAB 40 MG PO (11:19)
--- NOTE | 2019-09-21 12:02 | PGE_ITS ---
Date of Service Date of service: 09/21/19 Time of Service: 12:02 Assessment and Plan Assessment and plan (1) Sepsis: Status: Acute Assessment and plan: Due to multifocal pneumonia which was clinically present on admission. Blood cultures negative today. Sputum C&S with normal demian. Procalcitonin and CRP are improving. Repeat CXR done; results pending. I haven't been able to pull up the picture. Clinically he is certainly much better. D/c vanco. Continue zosyn/doxycycline. I ordered IS in addition to acapella. Can likely be discharged tomorrow with PO abx. (2) CAP (community acquired pneumonia): Status: Acute Assessment and plan: CT chest with multifocal pneumonia. As above - d/c vanco; continue zosyn/doxycycline. Continue to trend CRP/procalcitonin. Anticipate transition to PO augmentin and doxycycline on discharge tomorrow. Transition steroids to PO. (3) Hypoxia: Status: Resolved Assessment and plan: As above - due to multifocal pneumonia. Resolved. Add IS to ensure the patient is not becoming atelectatic. (4) Toxic metabolic encephalopathy: Status: Resolved Assessment and plan: CT head negative. Likely due to pneumonia. Now at baseline and tolerating outpatient dose of suboxone. Continue to monitor mental status. (5) Opiate withdrawal: Status: Acute Assessment and plan: Cotninue outpatient dose of suboxone. Continue prn clonidine/hydroxyzine/compazine/loperamide. (6) Hypokalemia: Status: Acute Assessment and plan: Replete and recheck in am. (7) DVT prophylaxis: Status: Acute Assessment and plan: SC lovenox (8) Discharge planning issues: Status: Acute Assessment and plan: Full code. Plan for discharge into federal custody with PO abx tomorrow. Subjective Subjective Interval history since last seen: Mr Franco states he is feeling better, no nausea/vomiting, and would like to have his diet upgraded. He denies dizziness, chest pain, shortness of breath. States breathing is much better. Has not been coughing, but has been bringing up sputum. He has not been able to work with an acapella. Requests another nebulizer tx. Exam Narrative Exam Narrative: General: male, looks less diaphoretic than yesterday, A&Ox3, sitting up in bed, alert. HEENT: EOMI, MMM; has dry residual red food coloring on his lips= Heart: RRR, no m/r/g Lungs: shallow breaths; diminished breath sounds B. I perceive a poor voluntary effort when he shows me how he does with acapella. Abdomen: soft, nontender, nondistended Extremities:trace edema BLE's, no c/c BLE's, secured with cuff to bed to his right ankle Objective Objective Clinical Data: Abnormal lab results 09/21/19 09/21/19 09/21/19 Range/Units 06:27 06:27 09:15 WBC 12.87 H (4.4-10.8) k/cumm RBC 3.90 L (4.50-6.00) m/cumm Hgb 11.0 L (13.5-17.5) g/dL Hct 33.4 L (40.0-50.0) % Absolute Neutrophils 9.82 H (1.2-6.7) k/cumm Absolute Monocytes 1.08 H (0.11-0.7) k/cumm Sodium 146 H (136-145) mmol/L Potassium 3.3 L (3.5-5.1) mmol/L Chloride 110 H (98-107) mmol/L Anion Gap 11.4 H (3-11) mmol/L Glucose 142 H (74-106) mg/dL Calcium 8.1 L (8.5-10.1) mg/dL C-Reactive Protein 2.37 H (0.0-0.3) mg/dL Vancomycin Trough 25.2 H* (10.0-20.0) ug/mL Vital Signs Temperature 37.3 C 09/21/19 08:09 Temperature Source Tympanic 09/21/19 08:09 Pulse 57 L 09/21/19 08:09 Pulse Rhythm Regular 09/21/19 09:18 Pulse 59 L 09/20/19 17:00 Respiratory Rate 18 09/21/19 08:09 Respiratory Effort Non-Labored 09/21/19 09:18 Respiratory Depth Normal 09/21/19 09:18 Respiratory Pattern Normal 09/21/19 09:18 Blood Pressure 164/91 H 09/21/19 08:09 Blood Pressure Mean 97 09/20/19 16:14 Blood Pressure Position Supine 09/20/19 18:15 Pulse Oximetry 98 09/21/19 08:09 Oxygen Delivery Method Room Air 09/21/19 08:09 Oxygen Flow Rate 0 09/21/19 08:09 Pain Level 0 09/21/19 08:09 Intake & Output 09/20/19 09/21/19 09/21/19 23:59 11:59 23:59 Intake Total 3430 / 4880 1960.000 / 1960.000 Output Total 875 / 1725 225 / 225 Balance 2555 / 3155 1735.000 / 1735.000 Weight 79.8 kg Intake: IV 3050 / 3760 1450.000 / 1450.000 Oral 380 / 1120 510 / 510 Output: Urine 425 / 725 Stool 450 / 800 Emesis 225 / 225 Other: Urine Color Light Cecilia Urine Appearance Clear Urine Odor None Comment mixed in liquid stool VOID X 2 INDEP DURING NOC SHIFT Stool Occult Blood Negative Stool Size Small Stool Characteristics Liquid Voiding Methods Bedside Commode Toilet Laboratory Results WBC 12.87 k/cumm (4.4-10.8) H 09/21/19 06:27 RBC 3.90 m/cumm (4.50-6.00) L 09/21/19 06:27 Hgb 11.0 g/dL (13.5-17.5) L 09/21/19 06:27 Hct 33.4 % (40.0-50.0) L 09/21/19 06:27 MCV 85.6 fL (80-95) 09/21/19 06:27 MCH 28.2 pg (27.0-33.0) 09/21/19 06:27 MCHC 32.9 g/dL (32.0-36.0) 09/21/19 06:27 RDW 13.2 % (11.8-14.1) 09/21/19 06:27 Plt Count 303 x1000/uL (130-400) 09/21/19 06:27 MPV 10.5 fL (8.0-11.0) 09/21/19 06:27 Immature Gran % 0.2 % 09/21/19 06:27 Neutrophils % 76.3 09/21/19 06:27 Band Neutrophils % 1.0 % 09/19/19 02:25 Lymphocytes % 14.9 09/21/19 06:27 Monocytes % 8.4 02/18/20 06:27 Eosinophils % 0.1 09/21/19 06:27 Basophils % 0.1 09/21/19 06:27 Absolute Neutrophils 9.82 k/cumm (1.2-6.7) H 09/21/19 06:27 Absolute Lymphocytes 1.92 k/cumm (1.2-3.4) 09/21/19 06:27 Absolute Monocytes 1.08 k/cumm (0.11-0.7) H 09/21/19 06:27 Absolute Eosinophils 0.01 k/cumm (0.0-0.7) 09/21/19 06:27 Absolute Basophils 0.01 k/cumm (0.0-0.2) 09/21/19 06:27 Differential Comment Manual differential 09/19/19 02:25 RBC Morphology See below 09/19/19 02:25 Anisocytosis 1+ 09/19/19 02:25 Microcytosis 1+ 09/19/19 02:25 PT 12.7 sec (9.3-11.0) H 09/18/19 08:55 INR 1.3 (0.9-1.1) H 09/18/19 08:55 D-Dimer 483 ng/mlFEU (<500) 09/19/19 02:25 ABG Sample Site Right radial 09/19/19 11:05 ABG pH 7.47 (7.35-7.45) H 09/19/19 11:05 ABG pCO2 34 mmHg (34-47) 09/19/19 11:05 ABG pO2 75 mmHg (83-108) L 09/19/19 11:05 ABG HCO3 25 mmol/L (22-28) 09/19/19 11:05 ABG Total CO2 22 mmol/L (22-29) 09/19/19 11:05 ABG O2 Saturation 96 % (94-98) 09/19/19 11:05 ABG Base Excess 1.2 mmol/L (-3-3) 09/19/19 11:05 Oxygen Liter Flow 3 L 09/19/19 11:05 Sodium 146 mmol/L (136-145) H 09/21/19 06:27 Potassium 3.3 mmol/L (3.5-5.1) L 09/21/19 06:27 Chloride 110 mmol/L (98-107) H 09/21/19 06:27 Carbon Dioxide 24.6 mmol/L (21.0-32.0) 09/21/19 06:27 Anion Gap 11.4 mmol/L (3-11) H 09/21/19 06:27 BUN 10 mg/dL (7-18) D 09/21/19 06:27 Creatinine 0.78 mg/dL (0.70-1.30) 09/21/19 06:27 Estimated GFR/1.73 m2 >= 60.00 (mL/min/1.73m2) 09/21/19 06:27 Glucose 142 mg/dL (74-106) H 09/21/19 06:27 Lactate 1.9 mmol/L (0.6-1.4) H 09/18/19 15:05 Calcium 8.1 mg/dL (8.5-10.1) L 09/21/19 06:27 Magnesium 1.8 mg/dL (1.8-2.4) 09/21/19 06:27 Total Bilirubin 0.6 mg/dL (0.2-1.0) 09/20/19 06:25 Conjugated Bilirubin 0.16 mg/dL (0.00-0.20) 09/20/19 06:25 AST 16 U/L (15-37) 09/20/19 06:25 ALT 21 U/L (16-63) 09/20/19 06:25 Alkaline Phosphatase 41 U/L (46-116) L 09/20/19 06:25 C-Reactive Protein 2.37 mg/dL (0.0-0.3) H 09/21/19 06:27 NT-Pro-B Natriuret Pep 191 pg/mL (<300) 09/19/19 02:25 Total Protein 6.2 g/dL (6.4-8.2) L 09/20/19 06:25 Albumin 3.3 g/dL (3.4-5.0) L 09/20/19 06:25 Lipase 97 U/L (73-393) 09/18/19 05:00 Procalcitonin 0.2 ng/mL 09/20/19 06:25 Urine Color Yellow (Yellow) 09/18/19 13:15 Urine Clarity Clear (Clear) 09/18/19 13:15 Urine pH 8.5 (5-8) H 09/18/19 13:15 Ur Specific [place] 1.010 (1.005-1.025) 09/18/19 13:15 Urine Protein 100 mg/dL (Negative) H 09/18/19 13:15 Urine Ketones 80 mg/dL (Negative) H 09/18/19 13:15 Urine Blood Negative (Negative) 09/18/19 13:15 Urine Nitrite Negative (Negative) 09/18/19 13:15 Urine Bilirubin Small (Negative) H 09/18/19 13:15 Urine Urobilinogen 2.0 EU/dL (Up TO 0.2) H 09/18/19 13:15 Ur Leukocyte Esterase Negative (Negative) 09/18/19 13:15 Urine RBC 0-2 HPF (0-2) 09/18/19 13:15 Urine WBC 0-2 HPF (0-5) 09/18/19 13:15 Ur Epithelial Cells Few HPF (Negative) 09/18/19 13:15 Urine Crystals Negative HPF (Negative) 09/18/19 13:15 Urine Bacteria Few HPF (Negative) 09/18/19 13:15 Urine Casts Negative LPF (Negative) 09/18/19 13:15 Urine Mucus Negative (Negative) 09/18/19 13:15 Urine Other Moderate spermatozoa (Negative) 09/18/19 13:15 Ur Culture Indicated? C&s done as ordered 09/18/19 13:15 Urine Glucose Negative mg/dL (Negative) 09/18/19 13:15 Vancomycin Trough 25.2 ug/mL (10.0-20.0) H* 09/21/19 09:15 Urine Opiates Screen Positive (Negative) A 09/18/19 13:15 Urine Methadone Screen Negative (Negative) 09/18/19 13:15 Ur Barbiturates Screen Negative (Negative) 09/18/19 13:15 Ur Tricyclics Screen Negative (Negative) 09/18/19 13:15 Ur Amphetamines Screen Negative (Negative) 09/18/19 13:15 U Benzodiazepines Scrn Negative (Negative) 09/18/19 13:15 Urine Cocaine Screen Negative (Negative) 09/18/19 13:15 Ur THC Screen Positive (Negative) A 09/18/19 13:15 Ethyl Alcohol < 3.0 mg/dL (<3) 09/18/19 05:00 Adenovirus DNA Cancelled 09/19/19 13:00 HIV 1&2 Ag/Ab, 4th Gen Negative (Negative) 09/18/19 08:55 Human Metapneumovir RNA Cancelled 09/19/19 13:00 Parainfluenza 1 (PCR) Cancelled 09/19/19 13:00 Parainfluenza 2 (PCR) Cancelled 09/19/19 13:00 Parainfluenza 3 (PCR) Cancelled 09/19/19 13:00 Parainfluenza 4 (PCR) Cancelled 09/19/19 13:00 Resp Viral Spec Desc Cancelled 09/19/19 13:00 Rhinovirus (PCR) Cancelled 09/19/19 13:00
[2019-09-21] MEDS: Albuterol 2.5 MG/3 ML INH SOLN VIAL UPD (12:13)
[2019-09-21] MEDS: POTASSIUM CHLORIDE 20 MEQ/100 ML BAG 50 MEQ IVPB ×2 (13:18→15:11)
--- NOTE | 2019-09-21 14:52 | W.NUTRFU ---
Date of service: 09/21/19 Time of Service: 14:52 Nutritional Follow up NOTE: Correction to nutrition consult on 09/20/19. Gaetano is 24 year old, that reports he was unable to eat or drink for 3 days prior to admission on 09/18/19, and was unable to keep most clear liquids down from 09/18-09/20/19 in house. However, today at lunch was upgraded to regular diet with 100% meal completion and no nausea or vomiting. No significant weight fluctuations noted other than weight increase most likely due to IV fluid administration. Met with Gaetano today that reports hunger and reviewed his meal preferences. He is at nutritional risk for moderate malnutrition in view of poor intake > 5 days as defined by ADN/ASPEN criteria to diagnose malnutrition. Estimated Needs: 2370 kcal (30 kcal/kg), 80 grams protein (1.0 g pro/kg), 2370 ml fluie (30 ml/kg). Intervention: Regular Diet, chocolate milk most meals will provide 100% nutrient needs for weight maintenance Will continue to monitor intake, wieght and labs daily and intervene as warranted. Time Spent in Nutritional Counseling and Treatment: 15 min spent face to face
[2019-09-21 15:33] LABS: Vancomycin, Trough 25.2 ug/mL (10.0-20.0)
--- NOTE | 2019-09-21 16:08 | PDOC.CMPRO ---
- If Service Date Differs Date of service: 09/21/19 Time of Service: 16:09 Care Management Progress Note S/O: Gaetano was sitting up in his bed when CM met with him. He was transitioned to [facility] Surge level today. He stated that he was feeling a little better today, but he still was not able to eat. He had his lunch tray in front of him and stated that he was going to attempt to eat lunch. Per MD, if he remains stable and tolerates a regular diet, he may be ready to discharge tomorrow. CM will continue to follow. A: Gaetano is a 24 year old male admitted to [facility] on 09/18/19 for sepsis, bilateral pneumonia. P:Anticipate Gaetano will return to the [facility] when medically cleared. He will follow up with his PCP. He will be transported by guards via private vehicle. CM will continue to follow and support Gaetano, his family and staff with discharge planning considerations.
[2019-09-21] MEDS: Enoxaparin 40 MG/0.4 ML SYR SC (16:20)
[2019-09-21] MEDS: Prochlorperazine 10 MG/2 ML VIAL 5 MG IVP (21:27)
[2019-09-21 22:33] LABS: Streptococcus Pneumoniae Ag, U Negative (Negative)
[2019-09-22] MEDS: PIPERACILLIN/TAZO 4.5 GM in Normal Saline 100 ML IVPB ×2 (00:24→08:04)
[2019-09-22] MEDS: Normal Saline Flush 10 ML SYR IVP ×2 (00:25→08:04)
[2019-09-22] MEDS: DOXYCYCLINE 100 MG in Normal Saline 100 ML IVPB ×2 (00:25→12:17)
[2019-09-22 00:30] VITALS: BP 161/95; PULSE 61; RESP 18; TEMP 37.4; O2SAT 98
[2019-09-22 01:18] LABS: Mycoplasma Pneumoniae PCR Negative; Specimen source SPUTUM
[2019-09-22 04:10] VITALS: BP 147/90; PULSE 65; RESP 18; TEMP 37.4; O2SAT 100
[2019-09-22] MEDS: cloNIDine 0.1 MG TAB PO (04:16)
[2019-09-22 07:32] VITALS: BP 152/92; PULSE 62; RESP 17; TEMP 36.7; O2SAT 98
[2019-09-22 08:00] LABS: Abs Immature Grans 0.03 k/cumm (0.0-0.09); Absolute Eosinophil Count 0.06 k/cumm (0.0-0.7); Absolute Lymphocyte Count 2.35 k/cumm (1.2-3.4); Absolute Monocyte Count 1.07 k/cumm (0.11-0.7); Eosinophils % 0.6; HCT 36.6 % (40.0-50.0); HGB 12.4 g/dL (13.5-17.5); Immature Grans % 0.3 %; Lymphocytes % 21.7; Mean Corp. HGB Concentration 33.9 g/dL (32.0-36.0); Mean Corpuscular Hemoglobin 28.4 pg (27.0-33.0); Mean Corpuscular Volume 83.9 fL (80-95); Monocytes % 9.9; Neutrophils % 67.5; Platelet Count 337 x1000/uL (130-400); RBC 4.36 m/cumm (4.50-6.00); RBC Distribution Width 12.7 % (11.8-14.1); White Blood Cell Count 10.81 k/cumm (4.4-10.8)
[2019-09-22] MEDS: guaiFENesin 600 MG TABCR PO (08:03)
[2019-09-22] MEDS: Pantoprazole 40 MG TABCR PO (08:03)
[2019-09-22] MEDS: Buprenorphine/Naloxone 8 mg/2 mg FILM 1 EACH SL (08:04)
[2019-09-22] MEDS: predniSONE 20 MG TAB 40 MG PO (08:04)
[2019-09-22 08:21] LABS: Anion Gap 8.7 mmol/L (3-11); BUN 10 mg/dL (7-18); C-Reactive Protein 1.19 mg/dL (0.0-0.3); CO2 26.3 mmol/L (21.0-32.0); CREATININE 0.79 mg/dL (0.70-1.30); Calcium 8.4 mg/dL (8.5-10.1); Chloride 107 mmol/L (98-107); Glucose 105 mg/dL (74-106); Magnesium 1.8 mg/dL (1.8-2.4); Potassium 3.1 mmol/L (3.5-5.1); Sodium 142 mmol/L (136-145)
[2019-09-22 11:05] VITALS: BP 139/89; PULSE 64; RESP 17; TEMP 36.7; O2SAT 99
--- NOTE | 2019-09-22 13:29 | DSE_ITS ---
Date of service: 09/22/19 Time of Service: 13:29 DS: Diagnosis Discharge Diagnosis (1) Sepsis: Status: Acute (2) CAP (community acquired pneumonia): Status: Acute (3) Hypoxia: Status: Resolved (4) Toxic metabolic encephalopathy: Status: Resolved (5) Opiate withdrawal: Status: Acute (6) Hypokalemia: Status: Acute Discharge Plan Disposition [facility] Disposition: [facility] Condition: Stable Discharge Details Chief Complaint: Abd Prob Clinical Impression: Opiate withdrawal, Hypokalemia Reason For Visit: ABDOMINAL PAIN Admit Date/Time: 09/18/19 06:04 Admit Provider: Yadiel Tapia Attending Provider: Yadiel Tapia Primary Care Provider: Luciano Dunn ED Provider: Jeremy Lara Hospital Course Hospital Course: Mr Franco is a 24 year old male with PMHx of opioid abuse (snorts fentanyl) who was admitted to [facility] hospitalist service on 09/18/2019 with abdominal pain, nausea, and vomiting presumed to be due to opioid withdrawal. The patient promptly developed a fever and had a leucocytosis with workup revealing multifocal pneumonia. He was initiated on systemic antibiotics (vancomycin, zosyn, doxycycline) as well as systemic steroids once he developed hypoxia, for which he was transferred to the ICU on hospital day 2. He was also quite lethargic/encephalopathic at that time. By hospital day 3, the patient turned around markedly, with normalization of his mental status and no longer requiring oxygen, so he was transferred out of the ICU. His blood and sputum cultures r emain negative to date. He would benefit from completion of 5 more days of antibiotics and a short steroid taper. He is encouraged to use IS 10 x/hr every hour while awake for the next 3-4 days to help with expectoration. He was continued on suboxone while in the hospital and is safe to resume MAT on discharge. His opioid withdrawal symptoms are under control at this time. He is medically stable for discharge back into federal custody today. Care for patient as well as completion of his discharge summary on day of discharge took 45 minutes. Home Meds and New Rx's Prescriptions: New albuterol sulfate 2.5 mg /3 mL (0.083 %) Solution For Nebulization 2.5 mg UPD Q4H PRN PRN (Reason: shortness of breath or wheezing) Qty: 90 RF: 0 Phenaseptic 1.4 % Aerosol,[place] 3 spray mucous membrane QID PRN PRN (Reason: sore throat) Qty: 177 RF: 0 guaifenesin [Mucinex] 600 mg Tablet Extended Release 12hr 600 mg PO BID Qty: 10 RF: 0 prednisone 20 mg Tablet See Rx Instructions .ROUTE .COMPLEX Qty: 5 RF: 0 pantoprazole 40 mg Tablet,Delayed Release (Dr/Ec) 40 mg PO DAILY@0730 Qty: 30 RF: 0 ibuprofen [IBU] 600 mg Tablet 600 mg PO QID PRN PRNQty: 30 RF: 0 doxycycline hyclate 100 mg capsule 100 mg PO BID Qty: 10 RF: 0 amoxicillin-pot clavulanate [Augmentin] 875-125 mg tablet 1 tab PO BID Qty: 10 RF: 0 potassium chloride 20 mEq tablet extended release 20 meq PO DAILY Qty: 7 RF: 0 Continued clonidine HCl 0.1 mg Tablet 0.1 mg PO BID PRNRF: 0 loperamide 2 mg Capsule 2 mg PO TID PRNRF: 0 hydroxyzine HCl 25 mg Tablet 25 mg PO TID PRNRF: 0 ondansetron 4 mg Tablet,Disintegrating 8 mg PO Q8H PRNRF: 0 acetaminophen 325 mg Capsule 325 mg PO TID PRNRF: 0 buprenorphine-naloxone 2-0.5 mg Tablet, Sublingual 1 tab SUBLINGUAL DAILY RF: 0 buprenorphine-naloxone 8-2 mg Tablet, Sublingual 1 tab SUBLINGUAL DAILY RF: 0 Discharge Instructions Instructions: Doxycycline (By mouth), Prednisone (By mouth), Amoxicillin/Clavulanate Potassium (By mouth), Pantoprazole (By mouth), How to Use an Incentive Spirometer (DC), Bacterial Pneumonia (DC) Additional Instructions: Finish your antibiotics and steroids as prescribed. Incentive spirometry 10 x/hr while awake. Activity:: Activity as Tolerated Equipment/Supplies:: incentive spirometry Diet:: As Tolerated Discharge Orders Discharge Orders: Discharge Order (Routine); Ordered 09/22/19 Ordered By: Shanya Weinstein DS: Summary Status at Discharge Functional status at discharge: independent ambulation Overall status at discharge: patient is progressing back to baseline Mental Status: mental status grossly normal Speech and Movement: speech and movement normal Mood: congruent mood Affect: normal affect Exam Narrative Exam Narrative: General: male, looks better, sitting comfortably in bed HEENT: EOMI, MMM Heart: RRR, no m/r/g Lungs: improved aeration B - no wheezing or rales. Abdomen: soft, nontender, nondistended Extremities: no edema BLE's, no c/c BLE's Psych Mental Status: mental status grossly normal Speech and Movement: speech and movement normal Mood: congruent mood Affect: normal affect DS: Data Vitals/I&O Vitals and I&O: Vital Signs Temperature 36.7 C 09/22/19 11:05 Temperature Source Tympanic 09/22/19 11:05 Pulse 64 09/22/19 11:05 Pulse Rhythm Regular 09/22/19 08:00 Pulse 59 L 09/20/19 17:00 Respiratory Rate 17 09/22/19 11:05 Respiratory Effort Non-Labored 09/22/19 08:00 Respiratory Depth Normal 09/22/19 08:00 Respiratory Pattern Normal 09/22/19 08:00 Blood Pressure 139/89 09/22/19 11:05 Blood Pressure Mean 97 09/20/19 16:14 Blood Pressure Position Supine 09/20/19 18:15 Pulse Oximetry 99 09/22/19 11:05 Oxygen Delivery Method Room Air 09/22/19 11:05 Oxygen Flow Rate 0 09/22/19 11:05 Pain Level 0 09/22/19 11:05 Intake & Output 09/21/19 09/22/19 09/22/19 23:59 11:59 23:59 Intake Total 1527.084 / 3487.084 210 / 210 Output Total 150 / 375 Balance 1377.084 / 3112.084 210 / 210 Weight 80.2 kg Intake: IV 1167.084 / 2617.084 210 / 210 Oral 360 / 870 Output: Emesis 150 / 375 Other: Comment pt voiding indpendently. voids independently. Voiding Methods Toilet Data Completed and Pending Completed studies during hospitalization [Text1]: CT abdomen/pelvis 09/18/2019: No acute abdominal or pelvic process. CXR PA and lateral 09/18/2019: No acute pulmonary process. CXR 09/19/2019: New left lower lobe infiltrate. CT chest 09/19/2019: Multifocal opacities in the lungs with focal consolidation in the left lower lobe. The findings are most consistent with multifocal pneumonia. CT head 09/19/2019: Normal CT of the head. CXR 09/21/2019: Resolved left basilar infiltrate. No pulmonary infiltrates are seen. The degree of pneumonia was best appreciated on the CT scan of the chest. Labs on day of discharge: Labs from last 24 hours 09/22/19 09/22/19 09/21/19 07:29 07:29 09:15 WBC 10.81 H RBC 4.36 L Hgb 12.4 L Hct 36.6 L MCV 83.9 MCH 28.4 MCHC 33.9 RDW 12.7 Plt Count 337 MPV 10.0 Immature Gran % 0.3 Neutrophils % 67.5 Lymphocytes % 21.7 Monocytes % 9.9 Eosinophils % 0.6 Basophils % 0.0 Absolute Neutrophils 7.30 H Absolute Lymphocytes 2.35 Absolute Monocytes 1.07 H Absolute Eosinophils 0.06 Absolute Basophils 0.00 Sodium 142 Potassium 3.1 L Chloride 107 Carbon Dioxide 26.3 Anion Gap 8.7 BUN 10 Creatinine 0.79 Estimated GFR/1.73 m2 >= 60.00 Glucose 105 Calcium 8.4 L Magnesium 1.8 C-Reactive Protein 1.19 H Vancomycin Trough 25.2 H* M. pneumoniae Source M. pneumoniae (PCR) Ur Strep pneumoniae Ag 09/19/19 09/19/19 22:15 20:01 WBC RBC Hgb Hct MCV MCH MCHC RDW Plt Count MPV Immature Gran % Neutrophils % Lymphocytes % Monocytes % Eosinophils % Basophils % Absolute Neutrophils Absolute Lymphocytes Absolute Monocytes Absolute Eosinophils Absolute Basophils Sodium Potassium Chloride Carbon Dioxide Anion Gap BUN Creatinine Estimated GFR/1.73 m2 Glucose Calcium Magnesium C-Reactive Protein Vancomycin Trough M. pneumoniae Source Sputum M. pneumoniae (PCR) Negative Ur Strep pneumoniae Ag Negative Preliminary micro results at discharge 09/18/19 08:55 Blood Culture - Preliminary Blood NO GROWTH 96 HOURS 09/18/19 09:05 Blood Culture - Preliminary Blood NO GROWTH 96 HOURS [facility] Medical History (Updated 09/22/19 @ 13:30 by Shayna Weinstein MD) Opioid abuse (Acute) Surgical History History of hernia repair (Chronic) Social History Smoking/Tobacco Use Status: Never Alcohol Intake: current Alcohol Intake frequency: holidays/special occasions only Drug use: Never Substance use type: opiates Do you feel safe at home: Yes Do you feel safe in your relationship?: Yes
--- NOTE | 2019-09-22 14:39 | PDOC.CMDIS ---
- If Service Date Differs Date of service: 09/22/19 Time of Service: 14:39 LACE Index Scoring Tool - Questions: Length of Stay (in days): 4 - 6 Acuity (Admit via E.D.?): Yes E.D. Visits: 2 - Answers: Total Score: 9 Risk of Readmission: Low Risk Care Management Discharge Reason for Hospitalization: Abdominal pain Discharge Plan: Gaetano will return to the custody of [place] [facility] today, as he has been medically cleared. He will transport via private vehicle by sherrif/guards. CM called his mother, Samanat to inform her of the update. Patient/Family Education Needs: Review discharge instructions regarding activity levels and medications, discussion of self care needs including ask me three
== END 2019-09-22 14:18 | disposition home or self-care (01) | DRG 871 ==
LOC: ER 06:07 → MS 14:20 → ICU 09-19 11:37 → MS 09-22 13:37 → ICU 09-23 13:20
PROVIDERS: Admitting Provider General Practice; Emergency Provider Emergency Medicine; PCP Internal Medicine; Visit Provider Internal Medicine
DX: A41.9 Sepsis, unspecified organism (principal); J18.9 Pneumonia, unspecified organism; G92 Toxic encephalopathy; F11.23 Opioid dependence with withdrawal; R09.02 Hypoxemia; E87.6 Hypokalemia; Z11.4 Encounter for screening for human immunodeficiency virus [HIV]
CPT/HCPCS: 36415; 71250; 80048; 80076; 80307; 82805; 83690; 84145; 85027; 87040; 87081; 87389; 87449; 87632; 96361; 96374; 96375; 99222; 99232; 99239; 99285; 99291; J1650; NC; 36600; 70450; 71045; 71046; 74177; 80202; 80320; 81003; 81015; 83605; 83735; 83880; 85014; 85018; 85025; 85379; 85610; 86140; 87070; 87086; 87205; 87450; 87581; 94640; 99221; J0780; J1720; J2405; J2543; J3370; J3475; J3480; J3490; J7512; J7613; J7620

== ENCOUNTER 2020-02-08 21:55 | Outpatient (REF) | payer MEDICAID, SELFPAY ==
[2020-02-15 06:49] LABS: Benzoylecgonine 1704 ng/mL (Cutoff: 50); Cocaine Negative ng/mL (Cutoff: 50); Cocaine Interpretation Positive.
== END 2020-02-08 22:15 ==
LOC: NCHCN 21:55
PROVIDERS: PCP Internal Medicine; Visit Provider Internal Medicine
DX: F11.20 Opioid dependence, uncomplicated (principal)
CPT/HCPCS: 80353